=== PATIENT | male | born 1950 | race Caucasian/White ===

== ENCOUNTER 2021-01-01 07:50 | Emergency (ER) | payer MEDICARE ==
[~2021-01-01] VITALS: Ht 185.4 cm; Wt 72.8 kg
[2021-01-01] MEDS ORDERED: IOHEXOL 350 MG/ML 100 ML VIAL ONE (08:19)
[2021-01-01] MEDS ORDERED: SODIUM CHLORIDE 0.9% 100 ML ONE (08:19)
[2021-01-01 08:37] LABS: BASOPHILS % (AUTO) 0.8 % (0.0-2.0); EOSINOPHILS % (AUTO) 2.6 % (1.0-6.0); HEMATOCRIT 36.2 % (41-53); LYMPHOCYTES # (AUTO) 0.6 K/uL (1.0-4.8); LYMPHOCYTES % (AUTO) 12.8 % (22.0-44.0); MEAN CORPUSCULAR HEMOGLOBIN 32.5 pg (26.0-34.0); MEAN CORPUSCULAR HGB CONC 33.1 G/dL (31.0-37.0); MEAN CORPUSCULAR VOLUME 98 fL (80-100); MONOCYTES # (AUTO) 0.4 K/uL (0.1-1.0); MONOCYTES % (AUTO) 8.9 % (2.0-9.0); NEUTROPHILS # (AUTO) 3.7 K/uL (1.8-7.7); NEUTROPHILS % (AUTO) 74.9 % (40.0-70.0); PLATELET COUNT (AUTO) 111 K/uL (150-450); RED BLOOD CELL COUNT(AUTO) 3.69 MIL/uL (4.50-5.90)
[2021-01-01 08:51] LABS: CALCIUM, TOTAL 7.6 mg/dL (8.8-10.5); CREATININE 1.23 mg/dL (0.60-1.30); POTASSIUM 3.8 mmol/L (3.5-5.1)
[2021-01-01 08:54] LABS: BILIRUBIN,TOTAL 0.6 mg/dL (0.1-1.0); TOTAL PROTEIN, SERUM 6.1 g/dL (6.4-8.2)
[2021-01-01 09:01] LABS: INR 1.3 (0.9-1.1); PROTHROMBIN TIME 13.3 SEC (9.4-11.6)
[2021-01-01 09:05] LABS: B-TYPE NATRIURETIC PEPTIDE 114 pg/mL (0-100)
[2021-01-01 09:06] LABS: COVID AG,FIA SOURCE NASOPHARYNGEAL
[2021-01-01] MEDS ORDERED: AMPICILLIN SODIUM/SULBACTAM NA 3 GM in SODIUM CHLORIDE 0.9% 100 ML IV ONE (09:15)
[2021-01-01] MEDS ORDERED: ASPIRIN 325 MG TABLET PO ONE (10:30)
[2021-01-01] MEDS ORDERED: ASPIRIN 600 MG RECTAL SUPPOSITORY PR ONE (10:45)
[2021-01-01 11:55] LABS: APPEARANCE,URINE CLOUDY (CLEAR); BILIRUBIN,URINE NEGATIVE (NEGATIVE); GLUCOSE, URINE (UA) NEGATIVE (NEGATIVE); KETONES,URINE NEGATIVE (NEGATIVE); LEUKOCYTE ESTERASE ,URINE LARGE (NEGATIVE); NITRATE,URINE NEGATIVE (NEGATIVE); OCCULT BLOOD,URINE TRACE (NEGATIVE); PH,URINE 6.5 (5.0-8.0); PROTEIN,URINE NEGATIVE (NEGATIVE); UROBILINOGEN,URINE 0.2 mg/dL (<=1.0)
[2021-01-01 12:00] LABS: AMPHET/METH SCREEN,URINE NEGATIVE (NEGATIVE); BARBITURATE SCREEN, URINE NEGATIVE (NEGATIVE); BENZODIAZEPINES SCREEN,URINE NEGATIVE (NEGATIVE); CANNABINOID SCREEN,URINE NEGATIVE (NEGATIVE); COCAINE SCREEN,URINE NEGATIVE (NEGATIVE); METHADONE SCREEN, URINE NEGATIVE (NEGATIVE); OPIATE SCREEN,URINE NEGATIVE (NEGATIVE); PHENCYCLIDINE SCREEN,URINE NEGATIVE (NEGATIVE)
[2021-01-01 12:06] LABS: BACTERIA,URINE Few /HPF (None Seen); RBC,URINE 0-2 /HPF (0-2); WBC,URINE 51-100 /HPF (0-5)
[2021-01-01 12:07] LABS: SQUAMOUS EPITHELIAL CELL,UR Few /LPF (None Seen)
[2021-01-01] MEDS ORDERED: ENTA200T18 PO (12:16)
[2021-01-01] MEDS ORDERED: LEVO100 PO (12:16)
[2021-01-01] MEDS ORDERED: DABI150 PO (12:16)
[2021-01-01] MEDS ORDERED: FURO-152 PO (12:16)
[2021-01-01 14:10] VITALS: BP 121/70
== END 2021-01-01 15:27 | disposition short-term general hospital (02) ==
LOC: EMS 07:57 → EDBD 07:57 → EMS 15:27
DX: R47.81 Slurred speech (principal); R53.1 Weakness; Z20.822 Contact with and (suspected) exposure to COVID-19
CPT/HCPCS: 36415; 70450; 70496; 71045; 80053; 80307; 81001; 82962; 83880; 84484; 85025; 85610; 85730; 86850; 86900; 86901; 87077; 87086; 87426; 93005; 96365; 99285; A9575; G0480; J0295; J7050

== ENCOUNTER 2021-10-15 10:10 | Emergency (ER) | payer MEDICARE ==
[~2021-10-15] VITALS: Ht 188 cm; Wt 70.4 kg
[~2021-10-15 10:10] MED LIST: DABI150 PO; ENTA200T18 PO; FURO-152 PO; LEVO100 PO
[2021-10-15 11:07] LABS: BASOPHILS % (AUTO) 0.5 % (0.0-2.0); EOSINOPHILS % (AUTO) 1.2 % (1.0-6.0); HEMATOCRIT 37.9 % (41-53); HEMOGLOBIN 12.9 g/dL (13.5-17.5); LYMPHOCYTES # (AUTO) 0.8 K/uL (1.0-4.8); LYMPHOCYTES % (AUTO) 11.7 % (22.0-44.0); MEAN CORPUSCULAR HEMOGLOBIN 33.3 pg (26.0-34.0); MEAN CORPUSCULAR HGB CONC 33.9 G/dL (31.0-37.0); MEAN CORPUSCULAR VOLUME 98 fL (80-100); MONOCYTES # (AUTO) 0.9 K/uL (0.1-1.0); MONOCYTES % (AUTO) 12.4 % (2.0-9.0); NEUTROPHILS # (AUTO) 5.2 K/uL (1.8-7.7); NEUTROPHILS % (AUTO) 74.2 % (40.0-70.0); PLATELET COUNT (AUTO) 146 K/uL (150-450); RED BLOOD CELL COUNT(AUTO) 3.86 MIL/uL (4.50-5.90); RED CELL DISTRIBUTION WIDTH 13.4 % (11.5-14.5)
[2021-10-15 11:19] LABS: ANION GAP 8 mmol/L (8-16); CARBON DIOXIDE 29 mmol/L (22-29); CHLORIDE 103 mmol/L (98-107); POTASSIUM 4.3 mmol/L (3.5-5.1); SODIUM SERUM 140 mmol/L (136-145)
[2021-10-15 11:20] LABS: CREATININE 1.11 mg/dL (0.60-1.30); GLOMERULAR FILTR. RATE CALC > 60 mL/min (>60); GLUCOSE,RANDOM 86 mg/dL (70-110); UREA NITROGEN, BLOOD 20 mg/dL (7-18)
[2021-10-15 11:27] LABS: LACTIC ACID 0.5 mmol/L (0.4-2.0)
[2021-10-15 11:31] LABS: ALKALINE PHOSPHATASE 58 U/L (46-116); ASPARTATE AMINOTRANSFERASE 35 U/L (15-37); BILIRUBIN,TOTAL 0.8 mg/dL (0.1-1.0)
[2021-10-15 11:32] LABS: ALANINE AMINOTRANSFERASE 11 U/L (12-78); ALBUMIN 3.6 g/dL (3.4-5.0); LIPASE 88 U/L (73-393); TOTAL PROTEIN, SERUM 6.9 g/dL (6.4-8.2)
[2021-10-15 11:39] LABS: APPEARANCE,URINE TURBID (CLEAR); BILIRUBIN,URINE NEGATIVE (NEGATIVE); GLUCOSE, URINE (UA) NEGATIVE (NEGATIVE); KETONES,URINE NEGATIVE (NEGATIVE); LEUKOCYTE ESTERASE ,URINE MODERATE (NEGATIVE); NITRATE,URINE NEGATIVE (NEGATIVE); OCCULT BLOOD,URINE LARGE (NEGATIVE); PH,URINE 7.5 (5.0-8.0); PROTEIN,URINE 100-200,SEE CONFIRM mg/dL (NEGATIVE); SPECIFIC GRAVITIY, URINE 1.015 (1.003-1.030); UROBILINOGEN,URINE <=1.0 mg/dL (<=1.0)
[2021-10-15 12:00] LABS: SULFOSALICYLIC ACID,URINE 4+ (Negative)
[2021-10-15 12:01] LABS: RBC,URINE Full Field /HPF (0-2)
[2021-10-15 12:05] LABS: WBC,URINE 26-50 /HPF (0-5)
[2021-10-15 12:07] LABS: BACTERIA,URINE None Seen /HPF (None Seen)
[2021-10-15] MEDS ORDERED: CefTRIAXone 1 GM/DEXTROSE 50 ML IV ONE (12:30)
[2021-10-15] MEDS ORDERED: CIPROFLOXACIN HCL 250 MG TABLET PO ONE (12:30)
[2021-10-15] MEDS ORDERED: CEPH-558 PO (12:35)
[2021-10-15] MEDS ORDERED: CIPR-279 PO (12:35)
[2021-10-15 15:15] VITALS: BP 115/68
== END 2021-10-15 15:47 | disposition home or self-care (01) ==
LOC: EMS 10:18
DX: G20 Parkinson's disease (principal); N30.90 Cystitis, unspecified without hematuria; I48.91 Unspecified atrial fibrillation; I10 Essential (primary) hypertension; Z95.0 Presence of cardiac pacemaker; Z79.899 Other long term (current) drug therapy
CPT/HCPCS: 36415; 80053; 81001; 83605; 83690; 84484; 85025; 87086; 93005; 96365; 99285; J0696; 81002; 96374

== ENCOUNTER 2021-10-18 12:02 | Emergency (ER) | payer MEDICARE ==
[~2021-10-18] VITALS: Ht 190.5 cm; Wt 71.4 kg
[~2021-10-18 12:02] MED LIST changes: +CEPH-558 PO; +CIPR-279 PO
[2021-10-18 13:41] LABS: BASOPHILS % (AUTO) 0.5 % (0.0-2.0); EOSINOPHILS % (AUTO) 1.7 % (1.0-6.0); HEMATOCRIT 32.5 % (41-53); HEMOGLOBIN 11.2 g/dL (13.5-17.5); LYMPHOCYTES % (AUTO) 12.8 % (22.0-44.0); MEAN CORPUSCULAR HEMOGLOBIN 33.8 pg (26.0-34.0); MEAN CORPUSCULAR HGB CONC 34.5 G/dL (31.0-37.0); MEAN CORPUSCULAR VOLUME 98 fL (80-100); MONOCYTES % (AUTO) 12.7 % (2.0-9.0); NEUTROPHILS # (AUTO) 5.5 K/uL (1.8-7.7); NEUTROPHILS % (AUTO) 72.3 % (40.0-70.0); PLATELET COUNT (AUTO) 133 K/uL (150-450); RED BLOOD CELL COUNT(AUTO) 3.32 MIL/uL (4.50-5.90); RED CELL DISTRIBUTION WIDTH 13.5 % (11.5-14.5)
[2021-10-18 13:53] LABS: INR 1.1 (0.9-1.1)
[2021-10-18 18:53] VITALS: BP 132/91
== END 2021-10-18 19:40 | disposition home or self-care (01) ==
LOC: EMS 12:07
DX: R31.9 Hematuria, unspecified (principal); I48.91 Unspecified atrial fibrillation; I10 Essential (primary) hypertension; G20 Parkinson's disease; F02.80 Dementia in other diseases classified elsewhere, unspecified severity, without behavioral disturbance, psychotic disturbance, mood disturbance, and anxiety; Z95.2 Presence of prosthetic heart valve
CPT/HCPCS: 81002; 85025; 85610; 99283

== ENCOUNTER 2022-02-03 15:14 | Emergency (ER) | payer MEDICARE ==
[~2022-02-03] VITALS: Ht 188 cm; Wt 70.9 kg
[~2022-02-03 15:14] MED LIST changes: -DABI150 PO; +DABI150C2 PO
[2022-02-03 16:57] LABS: BASOPHILS % (AUTO) 0.6 % (0.0-2.0); EOSINOPHILS % (AUTO) 2.3 % (1.0-6.0); HEMATOCRIT 35.1 % (41-53); HEMOGLOBIN 11.8 g/dL (13.5-17.5); LYMPHOCYTES # (AUTO) 0.9 K/uL (1.0-4.8); LYMPHOCYTES % (AUTO) 15.9 % (22.0-44.0); MEAN CORPUSCULAR HGB CONC 33.7 G/dL (31.0-37.0); MEAN CORPUSCULAR VOLUME 92 fL (80-100); MONOCYTES # (AUTO) 0.8 K/uL (0.1-1.0); NEUTROPHILS # (AUTO) 3.6 K/uL (1.8-7.7); NEUTROPHILS % (AUTO) 66.2 % (40.0-70.0); PLATELET COUNT (AUTO) 139 K/uL (150-450); RED CELL DISTRIBUTION WIDTH 15.7 % (11.5-14.5)
[2022-02-03] MEDS ORDERED: SODIUM CHLORIDE 0.9% 1,000 ML IV ONE (17:00)
[2022-02-03 17:10] LABS: ANION GAP 8 mmol/L (8-16); CARBON DIOXIDE 26 mmol/L (22-29); CHLORIDE 99 mmol/L (98-107); CREATININE 1.17 mg/dL (0.60-1.30); GLUCOSE,RANDOM 86 mg/dL (70-110); POTASSIUM 4.1 mmol/L (3.5-5.1); SODIUM SERUM 133 mmol/L (136-145); UREA NITROGEN, BLOOD 17 mg/dL (7-18)
[2022-02-03 17:11] LABS: GLOMERULAR FILTR. RATE CALC > 60 mL/min (>60)
[2022-02-03 17:19] LABS: ALANINE AMINOTRANSFERASE 7 U/L (12-78); ALBUMIN 3.4 g/dL (3.4-5.0); ALKALINE PHOSPHATASE 45 U/L (46-116); ASPARTATE AMINOTRANSFERASE 20 U/L (15-37); BILIRUBIN,TOTAL 0.6 mg/dL (0.1-1.0); TOTAL PROTEIN, SERUM 6.3 g/dL (6.4-8.2)
[2022-02-03 17:48] LABS: APPEARANCE,URINE CLEAR (CLEAR); BILIRUBIN,URINE NEGATIVE (NEGATIVE); GLUCOSE, URINE (UA) NEGATIVE (NEGATIVE); KETONES,URINE NEGATIVE (NEGATIVE); LEUKOCYTE ESTERASE ,URINE TRACE (NEGATIVE); NITRATE,URINE NEGATIVE (NEGATIVE); OCCULT BLOOD,URINE NEGATIVE (NEGATIVE); PH,URINE 6.5 (5.0-8.0); PROTEIN,URINE NEGATIVE (NEGATIVE); UROBILINOGEN,URINE <=1.0 mg/dL (<=1.0)
[2022-02-03 18:10] LABS: BACTERIA,URINE Rare /HPF (None Seen); RBC,URINE 0-2 /HPF (0-2); SQUAMOUS EPITHELIAL CELL,UR Rare /LPF (None Seen)
[2022-02-03] MEDS ORDERED: CEPHALEXIN MONOHYDRATE 500 MG CAPSULE PO ONE (18:45)
[2022-02-03 19:02] VITALS: BP 118/70
[2022-02-03] MEDS ORDERED: POLY17PO PO (19:05)
[2022-02-03] MEDS ORDERED: CEPH-558 PO (19:05)
== END 2022-02-03 19:55 | disposition home or self-care (01) ==
LOC: EMS 15:16
DX: N39.0 Urinary tract infection, site not specified (principal); I48.91 Unspecified atrial fibrillation; I10 Essential (primary) hypertension; G20 Parkinson's disease; F02.80 Dementia in other diseases classified elsewhere, unspecified severity, without behavioral disturbance, psychotic disturbance, mood disturbance, and anxiety; Z98.890 Other specified postprocedural states
CPT/HCPCS: 74022; 80053; 81001; 85025; 87086; 99284

== ENCOUNTER 2023-05-29 10:55 | Inpatient (IN) | payer MEDICARE ==
[~2023-05-29] VITALS: Ht 188 cm; Wt 67.0 kg
[~2023-05-29 10:55] MED LIST changes: +POLY17PO PO
[2023-05-29] MEDS ORDERED: MORPHINE SULFATE 4 MG/ML SYRINGE IVP ONE (12:45)
[2023-05-29] MEDS ORDERED: ONDANSETRON HCL 4 MG/2 ML VIAL IVP ONE (12:45)
[2023-05-29 13:16] LABS: BASOPHILS % (AUTO) 0.4 % (0.0-2.0); HEMATOCRIT 36.4 % (41-53); HEMOGLOBIN 12.4 g/dL (13.5-17.5); LYMPHOCYTES # (AUTO) 0.7 K/uL (1.0-4.8); LYMPHOCYTES % (AUTO) 6.2 % (22.0-44.0); MEAN CORPUSCULAR HEMOGLOBIN 33.8 pg (26.0-34.0); MEAN CORPUSCULAR HGB CONC 34.2 G/dL (31.0-37.0); MEAN CORPUSCULAR VOLUME 99 fL (80-100); MONOCYTES # (AUTO) 1.3 K/uL (0.1-1.0); MONOCYTES % (AUTO) 10.7 % (2.0-9.0); NEUTROPHILS # (AUTO) 9.6 K/uL (1.8-7.7); NEUTROPHILS % (AUTO) 81.7 % (40.0-70.0); PLATELET COUNT (AUTO) 148 K/uL (150-450); RED BLOOD CELL COUNT(AUTO) 3.68 MIL/uL (4.50-5.90); RED CELL DISTRIBUTION WIDTH 13.4 % (11.5-14.5); WHITE BLOOD COUNT (AUTO) 11.8 K/uL (4.5-11.0)
[2023-05-29 13:35] LABS: B-TYPE NATRIURETIC PEPTIDE 157 pg/mL (0-100)
[2023-05-29 13:36] LABS: LACTIC ACID 1.2 mmol/L (0.4-2.0)
[2023-05-29 13:39] LABS: INR 1.1 (0.9-1.1); PROTHROMBIN TIME 11.9 SEC (9.4-11.6); TROPONIN I-HIGH SENSITIVITY 172 ng/L (<76)
[2023-05-29 13:42] LABS: COVID AG,FIA SOURCE NASAL SWAB
[2023-05-29 13:54] LABS: ANION GAP 5 mmol/L (8-16); CALCIUM, TOTAL 8.4 mg/dL (8.8-10.5); CARBON DIOXIDE 28 mmol/L (22-29); CHLORIDE 100 mmol/L (98-107); CREATININE 1.18 mg/dL (0.60-1.30); GLOMERULAR FILTR. RATE CALC > 60 mL/min (>60); GLUCOSE,RANDOM 99 mg/dL (70-110); POTASSIUM 3.9 mmol/L (3.5-5.1); SODIUM SERUM 133 mmol/L (136-145); UREA NITROGEN, BLOOD 22 mg/dL (7-18)
[2023-05-29 13:57] LABS: ALBUMIN 3.4 g/dL (3.4-5.0); LIPASE 27 U/L (16-77)
[2023-05-29 14:08] LABS: ALANINE AMINOTRANSFERASE 30 U/L (12-78); ALKALINE PHOSPHATASE 70 U/L (46-116); ASPARTATE AMINOTRANSFERASE 28 U/L (15-37); BILIRUBIN,TOTAL 0.7 mg/dL (0.1-1.0); TOTAL PROTEIN, SERUM 7.9 g/dL (6.4-8.2)
[2023-05-29 14:13] LABS: SARS-COV2 (COVID) ANTIGEN,FIA Negative (Negative)
[2023-05-29] MEDS ORDERED: MAGNESIUM HYDROXIDE SUSPENSION 30 ML UDCUP PO PRN (15:00)
[2023-05-29] MEDS ORDERED: ACETAMINOPHEN 325 MG TABLET PO PRN (15:00)
[2023-05-29] MEDS ORDERED: ONDANSETRON HCL 4 MG/2 ML VIAL IVP PRN (15:00)
[2023-05-29 15:35] LABS: APPEARANCE,URINE HAZY (CLEAR); BILIRUBIN,URINE NEGATIVE (NEGATIVE); COLOR,URINE YELLOW (YELLOW); GLUCOSE, URINE (UA) NEGATIVE (NEGATIVE); LEUKOCYTE ESTERASE ,URINE LARGE (NEGATIVE); OCCULT BLOOD,URINE TRACE (NEGATIVE); PROTEIN,URINE 30-70 mg/dL (NEGATIVE); SPECIFIC GRAVITIY, URINE 1.017 (1.003-1.030); UROBILINOGEN,URINE <=1.0 mg/dL (<=1.0)
[2023-05-29 15:46] LABS: NITRATE,URINE POSITIVE (NEGATIVE)
[2023-05-29 15:47] LABS: BACTERIA,URINE Many /HPF (None Seen); SQUAMOUS EPITHELIAL CELL,UR Rare /LPF (None Seen); WBC,URINE 51-100 /HPF (0-5)
[2023-05-29] MEDS: HEPARIN SODIUM,PORCINE 5,000 UNITS/ML VIAL SQ SCH ×2 (16:02→23:47)
[2023-05-29 16:36] LABS: CREATINE KINASE, TOTAL ONLY 130 U/L (39-308); THYROID STIMULATING HORMONE 4.69 uIU/mL (0.36-3.74)
[2023-05-29 17:42] VITALS: BP 135/85; PULSE 67; RESP 18; TEMP 98.3
[2023-05-29 19:32] LABS: TROPONIN I-HIGH SENSITIVITY 182 ng/L (<76)
[2023-05-29 19:49] VITALS: BP 122/74; PULSE 69; RESP 18; TEMP 98.3
[2023-05-29] MEDS: DOCUSATE SODIUM 100 MG CAPSULE PO SCH (20:49)
[2023-05-29] MEDS: METOPROLOL TARTRATE 25 MG TABLET PO SCH (20:49)
[2023-05-30] VITALS (7 sets, daily range): BP systolic 105–135; BP diastolic 62–84; PULSE 60–80; RESP 18–20; TEMP 97.8–98.9
[2023-05-30 07:14] LABS: TROPONIN I-HIGH SENSITIVITY 124 ng/L (<76)
[2023-05-30] MEDS: METOPROLOL TARTRATE 25 MG TABLET PO SCH ×2 (08:35→21:02)
[2023-05-30] MEDS: HEPARIN SODIUM,PORCINE 5,000 UNITS/ML VIAL SQ SCH ×3 (08:37→23:51)
[2023-05-30] MEDS: DOCUSATE SODIUM 100 MG CAPSULE PO SCH ×2 (08:37→21:02)
[2023-05-30] MEDS: FAMOTIDINE 20 MG TABLET PO SCH (08:37)
[2023-05-30] MEDS: OxyCODONE HCL/ACETAMINOPHEN 5-325 MG TABLET PO PRN (08:37)
[2023-05-30] MEDS ORDERED: SODIUM CHLORIDE 0.9% 1,000 ML ONE (11:52)
[2023-05-30] MEDS: CefTRIAXone 1 GM/DEXTROSE 50 ML IV SCH (11:58)
[2023-05-30] MEDS: MORPHINE SULFATE 2 MG/ML SYRINGE IVP PRN (12:00)
[2023-05-30] MEDS: ENTACAPONE 200 MG TABLET PO SCH (21:02)
[2023-05-31] MEDS: MORPHINE SULFATE 2 MG/ML SYRINGE IVP PRN (03:41)
[2023-05-31 03:51] VITALS: BP 110/75; PULSE 60; RESP 18; TEMP 97.8
[2023-05-31 06:43] LABS: BASOPHILS % (AUTO) 0.3 % (0.0-2.0); EOSINOPHILS % (AUTO) 2.3 % (1.0-6.0); HEMATOCRIT 32.5 % (41-53); HEMOGLOBIN 11.4 g/dL (13.5-17.5); LYMPHOCYTES % (AUTO) 9.9 % (22.0-44.0); MEAN CORPUSCULAR HEMOGLOBIN 34.1 pg (26.0-34.0); MEAN CORPUSCULAR HGB CONC 35.1 G/dL (31.0-37.0); MEAN CORPUSCULAR VOLUME 97 fL (80-100); MONOCYTES # (AUTO) 1.4 K/uL (0.1-1.0); MONOCYTES % (AUTO) 13.7 % (2.0-9.0); NEUTROPHILS # (AUTO) 7.6 K/uL (1.8-7.7); NEUTROPHILS % (AUTO) 73.8 % (40.0-70.0); PLATELET COUNT (AUTO) 146 K/uL (150-450); RED BLOOD CELL COUNT(AUTO) 3.34 MIL/uL (4.50-5.90); RED CELL DISTRIBUTION WIDTH 13.3 % (11.5-14.5); WHITE BLOOD COUNT (AUTO) 10.3 K/uL (4.5-11.0)
[2023-05-31 07:09] LABS: ANION GAP 4 mmol/L (8-16); CALCIUM, TOTAL 8.4 mg/dL (8.8-10.5); CARBON DIOXIDE 31 mmol/L (22-29); CHLORIDE 100 mmol/L (98-107); CREATININE 1.09 mg/dL (0.60-1.30); GLOMERULAR FILTR. RATE CALC > 60 mL/min (>60); GLUCOSE,RANDOM 100 mg/dL (70-110); SODIUM SERUM 135 mmol/L (136-145); UREA NITROGEN, BLOOD 25 mg/dL (7-18)
[2023-05-31] MEDS: HEPARIN SODIUM,PORCINE 5,000 UNITS/ML VIAL SQ SCH ×2 (08:00→16:00)
[2023-05-31] MEDS ORDERED: ETHYL ALCOHOL 62% ANTISEPTIC NASAL SANITIZER 0.6 ML AMPUL NASAL ONE (08:00)
[2023-05-31 08:08] VITALS: BP 122/77; PULSE 73; RESP 18; TEMP 97.5
[2023-05-31] MEDS: DOCUSATE SODIUM 100 MG CAPSULE PO SCH ×2 (09:00→20:11)
[2023-05-31] MEDS: MULTIVITAMINS WITH MINERALS, THERAPEUTIC TABLET PO SCH (09:00)
[2023-05-31] MEDS: METOPROLOL TARTRATE 25 MG TABLET PO SCH ×2 (09:00→20:10)
[2023-05-31] MEDS: FAMOTIDINE 20 MG TABLET PO SCH (09:00)
[2023-05-31] MEDS: ENTACAPONE 200 MG TABLET PO SCH ×2 (09:00→20:10)
[2023-05-31] MEDS ORDERED: RINGERS SOLUTION,LACTATED 1,000 ML IV ONE (09:30)
[2023-05-31] MEDS ORDERED: BUPIVACAINE LIPOSOME/PF 1.3%-13.3MG/ML SUSPENSION 20 ML VIAL INJ ONE (09:30)
[2023-05-31] MEDS ORDERED: BUPIVACAINE HCL/PF 0.5% 30 ML VIAL ONE (09:40)
[2023-05-31] MEDS ORDERED: LIDOCAINE 1%/EPI 1:200,000/PF 30 ML VIAL ONE (09:40)
[2023-05-31] MEDS ORDERED: BACITRACIN 28 GM OINTMENT TP ONE (09:52)
[2023-05-31] MEDS ORDERED: SODIUM CHLORIDE 0.9% 1,000 ML ONE (10:24)
[2023-05-31] MEDS ORDERED: NOREPINEPHRINE 8 MG/0.9 % NACL 250 ML IV PRN (10:30)
[2023-05-31] MEDS ORDERED: BUPIVACAINE HCL/PF 0.25% 30 ML VIAL ONE (10:35)
[2023-05-31] MEDS: CefTRIAXone 1 GM/DEXTROSE 50 ML IV SCH (11:00)
[2023-05-31] MEDS ORDERED: PROPOFOL 1% 20 ML VIAL IVP ONE (12:00)
[2023-05-31] MEDS ORDERED: SUGAMMADEX SODIUM 200 MG/2 ML VIAL IVP ONE (12:00)
[2023-05-31] MEDS ORDERED: ROCURONIUM BROMIDE 10 MG/ML 5 ML VIAL IVP ONE (12:00)
[2023-05-31] MEDS ORDERED: PHENYLEPHRINE HCL 10 MG/ML VIAL IVP ONE (12:00)
[2023-05-31] MEDS ORDERED: 0.9% SODIUM CHLORIDE 10 ML VIAL IVP ONE (12:00)
[2023-05-31] MEDS ORDERED: LIDOCAINE/PF 2% 5 ML SYRINGE IVP ONE (12:00)
[2023-05-31] MEDS ORDERED: CeFAZolin SODIUM 1 GM VIAL IVP ONE (12:00)
[2023-05-31] MEDS ORDERED: VANCOMYCIN HCL 1 GM/VIAL ONE (12:23)
[2023-05-31] MEDS ORDERED: MUPIROCIN CALCIUM 2% 22 GM OINTMENT ONE (13:28)
[2023-05-31] MEDS ORDERED: ACETAMINOPHEN 1000 MG/ISO-OSM 100 ML IV ONE (14:15)
[2023-05-31] MEDS ORDERED: CeFAZolin 2 GM/DEXTROSE 50 ML IV ONE (14:30)
[2023-05-31] MEDS ORDERED: CeFAZolin SODIUM 1 GM VIAL IV ONE (14:30)
[2023-05-31 14:56] LABS: ABG BASE EXCESS 1.8 mmol/L (-2.0-3.0); ABG CARBOXYHEMOGLOBIN 0.4 % (0.0-1.5); ABG HCO3 26.2 mmol/L (22.0-26.0); ABG METHEMOGLOBIN 0.3 % (0.0-1.5); ABG OXYGEN CONTENT 16.2 mL/dL (15.0-23.0); ABG OXYGEN SATURATION 95.7 % (95.0-98.0); ABG PCO2 36 mmHg (35-45); ABG PH 7.472 (7.35-7.450); ABG TOTAL HEMOGLOBIN 12.1 G/dL (12.0-18.0); PO2, ARTERIAL BG 78.6 mmHg (75.0-83.0); SITE, BLOOD GAS ARTERIAL LINE; SOURCE, BLOOD GAS ARTERIAL; TEMPERATURE, FAHRENHEIT, BG 98.6 FAHREN (96.0-98.6)
[2023-05-31 14:57] LABS: ABG A-A DIFF O2 28.5 mmHg (10-20.0); O2 DEVICE,BLOOD GAS ROOM AIR (ROOM AIR)
[2023-05-31] MEDS ORDERED: OXYGEN THERAPY IH SCH (20:00)
[2023-05-31] MEDS: OxyCODONE HCL/ACETAMINOPHEN 5-325 MG TABLET PO PRN (20:09)
[2023-05-31 20:10] VITALS: BP 97/54; PULSE 80; RESP 19; TEMP 98
[2023-06-01] MEDS: HEPARIN SODIUM,PORCINE 5,000 UNITS/ML VIAL SQ SCH ×3 (00:19→17:39)
[2023-06-01 00:36] VITALS: BP 94/61; PULSE 68; RESP 17; TEMP 97.4
[2023-06-01 04:11] VITALS: BP 101/68; PULSE 68; RESP 17; TEMP 98.2
[2023-06-01 07:50] VITALS: BP 107/65; PULSE 72; RESP 18; TEMP 98.2
[2023-06-01 08:06] LABS: HEPATITIS C AB (EIA) Non Reactive (Non Reactive)
[2023-06-01] MEDS: ENTACAPONE 200 MG TABLET PO SCH (08:43)
[2023-06-01] MEDS: MULTIVITAMINS WITH MINERALS, THERAPEUTIC TABLET PO SCH (08:43)
[2023-06-01] MEDS: DOCUSATE SODIUM 100 MG CAPSULE PO SCH (08:44)
[2023-06-01] MEDS: METOPROLOL TARTRATE 25 MG TABLET PO SCH (08:44)
[2023-06-01] MEDS: FAMOTIDINE 20 MG TABLET PO SCH (08:44)
[2023-06-01] MEDS: CefTRIAXone 1 GM/DEXTROSE 50 ML IV SCH (11:17)
[2023-06-01 12:15] VITALS: BP 105/68; PULSE 72; RESP 18; TEMP 98
[2023-06-01] MEDS ORDERED: CEFT1FRO3 IV (13:29)
[2023-06-01] MEDS ORDERED: ENTA200T18 PO (13:30)
[2023-06-01] MEDS ORDERED: DOCU-385 PO (13:30)
[2023-06-01] MEDS ORDERED: FAMO20 PO (13:30)
[2023-06-01] MEDS ORDERED: HEPA500018 SQ (13:31)
[2023-06-01] MEDS ORDERED: MULT-1239 PO (13:32)
[2023-06-01] MEDS ORDERED: METO25 PO (13:32)
[2023-06-01] MEDS ORDERED: ACET-2247 PO (13:34)
[2023-06-01] MEDS ORDERED: MAGN-169 PO (13:35)
[2023-06-01 15:32] VITALS: BP 104/58; PULSE 68; RESP 18; TEMP 98.1
== END 2023-06-01 19:50 | DRG 480 ==
LOC: EMS 10:56 → 5S 14:56
PROVIDERS: ADMIT Internal Medicine; ATTEND Internal Medicine
PROC: 0QS734Z Reposition Left Upper Femur with Internal Fixation Device, Percutaneous Approach (ICD-10-PCS; principal; 2023-05-31 11:55)
DX: S72.142A Displaced intertrochanteric fracture of left femur, initial encounter for closed fracture (principal); E43 Unspecified severe protein-calorie malnutrition; N39.0 Urinary tract infection, site not specified; Z68.1 Body mass index [BMI] 19.9 or less, adult; I48.0 Paroxysmal atrial fibrillation; F02.80 Dementia in other diseases classified elsewhere, unspecified severity, without behavioral disturbance, psychotic disturbance, mood disturbance, and anxiety; G20.A1 Parkinson's disease without dyskinesia, without mention of fluctuations; Z20.822 Contact with and (suspected) exposure to COVID-19; R79.89 Other specified abnormal findings of blood chemistry; I49.5 Sick sinus syndrome; E88.A Wasting disease (syndrome) due to underlying condition; I10 Essential (primary) hypertension; W01.0XXA Fall on same level from slipping, tripping and stumbling without subsequent striking against object, initial encounter; Y93.01 Activity, walking, marching and hiking; Y92.89 Other specified places as the place of occurrence of the external cause; Y99.8 Other external cause status; Z95.0 Presence of cardiac pacemaker; Z95.2 Presence of prosthetic heart valve; Z79.899 Other long term (current) drug therapy
CPT/HCPCS: 71045; 73503; 80048; 80053; 81001; 82550; 82805; 83605; 83690; 83880; 84443; 84484; 85025; 85610; 85730; 86803; 87040; 87081; 87086; 87186; 87340; 93005; 93306; 97163; 97166; 97530; 97535; 99291; C9290; J0131; J0690; J0696; J1644; J2270; J2405; J2704; J3370; J3490; J7030; J7120; Q9967; 36415-L1; 36415-TC; 73552-LT

== ENCOUNTER 2023-06-21 12:32 | Inpatient (IN) | payer MEDICARE ==
[~2023-06-21] VITALS: Ht 177.8 cm; Wt 59.0 kg
[~2023-06-21 12:32] MED LIST changes: +ACET-2247 PO; +CEFT1FRO3 IV; -CEPH-558 PO; -CIPR-279 PO; -DABI150C2 PO; +DOCU-385 PO; +FAMO20 PO; -FURO-152 PO; +HEPA500018 SQ; +MAGN-169 PO; +METO25 PO; +MULT-1239 PO; -POLY17PO PO
[2023-06-21 13:53] LABS: BASOPHILS % (AUTO) 0.4 % (0.0-2.0); EOSINOPHILS % (AUTO) 1.4 % (1.0-6.0); HEMOGLOBIN 12.4 g/dL (13.5-17.5); LYMPHOCYTES # (AUTO) 0.9 K/uL (1.0-4.8); LYMPHOCYTES % (AUTO) 9.7 % (22.0-44.0); MEAN CORPUSCULAR HEMOGLOBIN 33.4 pg (26.0-34.0); MEAN CORPUSCULAR HGB CONC 33.6 G/dL (31.0-37.0); MEAN CORPUSCULAR VOLUME 99 fL (80-100); MONOCYTES # (AUTO) 1.1 K/uL (0.1-1.0); MONOCYTES % (AUTO) 11.8 % (2.0-9.0); NEUTROPHILS # (AUTO) 7.2 K/uL (1.8-7.7); NEUTROPHILS % (AUTO) 76.7 % (40.0-70.0); PLATELET COUNT (AUTO) 228 K/uL (150-450); RED BLOOD CELL COUNT(AUTO) 3.72 MIL/uL (4.50-5.90); RED CELL DISTRIBUTION WIDTH 13.4 % (11.5-14.5); WHITE BLOOD COUNT (AUTO) 9.4 K/uL (4.5-11.0)
[2023-06-21 14:03] LABS: ANION GAP 6 mmol/L (8-16); CALCIUM, TOTAL 8.8 mg/dL (8.8-10.5); CARBON DIOXIDE 30 mmol/L (22-29); CHLORIDE 98 mmol/L (98-107); CREATININE 0.86 mg/dL (0.60-1.30); GLOMERULAR FILTR. RATE CALC > 60 mL/min (>60); GLUCOSE,RANDOM 85 mg/dL (70-110); POTASSIUM 4.3 mmol/L (3.5-5.1); SODIUM SERUM 133 mmol/L (136-145); UREA NITROGEN, BLOOD 23 mg/dL (7-18)
[2023-06-21 14:11] LABS: ALANINE AMINOTRANSFERASE 30 U/L (12-78); ALBUMIN 3.3 g/dL (3.4-5.0); ALKALINE PHOSPHATASE 128 U/L (46-116); ASPARTATE AMINOTRANSFERASE 30 U/L (15-37); BILIRUBIN,TOTAL 0.5 mg/dL (0.1-1.0); TOTAL PROTEIN, SERUM 7.8 g/dL (6.4-8.2)
[2023-06-21] MEDS ORDERED: METO-408 PO (16:52)
[2023-06-21] MEDS ORDERED: PANT40TA54 PO (16:52)
[2023-06-21] MEDS ORDERED: MAGN-169 PO (16:52)
[2023-06-21] MEDS ORDERED: ALEN70TA65 PO (16:52)
[2023-06-21] MEDS ORDERED: FLUD.1 PO (16:52)
[2023-06-21] MEDS ORDERED: MIDO10TA PO (16:52)
[2023-06-21] MEDS ORDERED: CARB1TAB42 PO (16:52)
[2023-06-21] MEDS ORDERED: MORPHINE SULFATE 4 MG/ML SYRINGE IVP ONE (20:30)
[2023-06-21] MEDS ORDERED: ONDANSETRON HCL 4 MG/2 ML VIAL IVP ONE (20:30)
[2023-06-21] MEDS ORDERED: SODIUM CHLORIDE 0.9% 1,000 ML IV ONE (20:30)
[2023-06-21] MEDS ORDERED: BISACODYL 10 MG RECTAL RECTAL SUPPOSITORY PR PRN (22:00)
[2023-06-21] MEDS ORDERED: ZOLPIDEM TARTRATE 5 MG TABLET PO PRN (22:00)
[2023-06-21] MEDS ORDERED: MAGNESIUM HYDROXIDE SUSPENSION 30 ML UDCUP PO PRN (22:00)
[2023-06-21] MEDS ORDERED: ACETAMINOPHEN 325 MG TABLET PO PRN (22:00)
[2023-06-21] MEDS ORDERED: HYDROCODONE/ACETAMINOPHEN 5-325 MG TABLET PO PRN (22:00)
[2023-06-21] MEDS ORDERED: ONDANSETRON HCL 4 MG/2 ML VIAL IVP PRN (22:00)
[2023-06-21] MEDS ORDERED: MORPHINE SULFATE 2 MG/ML SYRINGE IVP PRN (22:00)
[2023-06-21] MEDS: HEPARIN SODIUM,PORCINE 5,000 UNITS/ML VIAL SQ SCH (23:52)
[2023-06-22 01:52] LABS: COVID AG,FIA SOURCE NASAL SWAB
[2023-06-22 02:10] LABS: SARS-COV2 (COVID) ANTIGEN,FIA Negative (Negative)
[2023-06-22] MEDS: LEVOTHYROXINE SODIUM 100 MCG TABLET PO SCH (05:56)
[2023-06-22 05:57] VITALS: BP 124/80; PULSE 73; RESP 19; TEMP 98.4
[2023-06-22 07:36] LABS: BASOPHILS % (AUTO) 0.3 % (0.0-2.0); EOSINOPHILS % (AUTO) 0.6 % (1.0-6.0); HEMATOCRIT 35.2 % (41-53); HEMOGLOBIN 12.2 g/dL (13.5-17.5); LYMPHOCYTES # (AUTO) 0.7 K/uL (1.0-4.8); LYMPHOCYTES % (AUTO) 7.6 % (22.0-44.0); MEAN CORPUSCULAR HGB CONC 34.5 G/dL (31.0-37.0); MEAN CORPUSCULAR VOLUME 98 fL (80-100); MONOCYTES # (AUTO) 0.8 K/uL (0.1-1.0); MONOCYTES % (AUTO) 9.1 % (2.0-9.0); NEUTROPHILS # (AUTO) 7.7 K/uL (1.8-7.7); NEUTROPHILS % (AUTO) 82.4 % (40.0-70.0); PLATELET COUNT (AUTO) 213 K/uL (150-450); RED BLOOD CELL COUNT(AUTO) 3.58 MIL/uL (4.50-5.90); WHITE BLOOD COUNT (AUTO) 9.3 K/uL (4.5-11.0)
[2023-06-22 07:52] LABS: ANION GAP 9 mmol/L (8-16); CALCIUM, TOTAL 8.5 mg/dL (8.8-10.5); CARBON DIOXIDE 27 mmol/L (22-29); CHLORIDE 103 mmol/L (98-107); CREATININE 0.85 mg/dL (0.60-1.30); GLOMERULAR FILTR. RATE CALC > 60 mL/min (>60); GLUCOSE,RANDOM 96 mg/dL (70-110); POTASSIUM 4.2 mmol/L (3.5-5.1); SODIUM SERUM 139 mmol/L (136-145); UREA NITROGEN, BLOOD 22 mg/dL (7-18)
[2023-06-22] MEDS: HEPARIN SODIUM,PORCINE 5,000 UNITS/ML VIAL SQ SCH ×2 (08:00→16:00)
[2023-06-22 08:32] VITALS: BP 112/74; PULSE 69; RESP 18; TEMP 98
[2023-06-22] MEDS: CARBIDOPA/LEVODOPA 50-200 MG ER TABLET PO SCH ×4 (09:00→21:00)
[2023-06-22] MEDS: PANTOPRAZOLE SODIUM 40 MG DR TABLET PO SCH (09:00)
[2023-06-22] MEDS: FLUDROCORTISONE ACETATE 0.1 MG TABLET PO SCH (09:00)
[2023-06-22] MEDS: DOCUSATE SODIUM 100 MG CAPSULE PO SCH ×2 (09:00→21:00)
[2023-06-22] MEDS: METOPROLOL SUCCINATE 25 MG ER TABLET PO SCH (09:00)
[2023-06-22 10:54] VITALS: BP 118/76; PULSE 72; RESP 19; TEMP 98.2
[2023-06-22 16:09] VITALS: BP 103/75; PULSE 82; RESP 19; TEMP 98.4
[2023-06-22 21:20] VITALS: BP 167/62; PULSE 83; RESP 20; TEMP 98.9
[2023-06-22 21:35] VITALS: BP 167/62; PULSE 83; RESP 20; TEMP 98.9
[2023-06-23] VITALS (7 sets, daily range): BP systolic 100–129; BP diastolic 51–88; PULSE 63–81; RESP 17–20; TEMP 97.8–98.8
[2023-06-23] MEDS: HEPARIN SODIUM,PORCINE 5,000 UNITS/ML VIAL SQ SCH ×3 (00:36→23:22)
[2023-06-23] MEDS: LEVOTHYROXINE SODIUM 100 MCG TABLET PO SCH (06:30)
[2023-06-23] MEDS: PANTOPRAZOLE SODIUM 40 MG DR TABLET PO SCH (09:00)
[2023-06-23] MEDS: CARBIDOPA/LEVODOPA 50-200 MG ER TABLET PO SCH ×4 (09:00→20:14)
[2023-06-23] MEDS: METOPROLOL SUCCINATE 25 MG ER TABLET PO SCH (09:00)
[2023-06-23] MEDS: FLUDROCORTISONE ACETATE 0.1 MG TABLET PO SCH (09:00)
[2023-06-23] MEDS: DOCUSATE SODIUM 100 MG CAPSULE PO SCH ×2 (09:00→20:13)
[2023-06-23] MEDS ORDERED: DEXTROSE 5%-0.45% SODIUM CHL 1,000 ML IV ONE (11:15)
[2023-06-23 12:23] LABS: APPEARANCE,URINE HAZY (CLEAR); BILIRUBIN,URINE NEGATIVE (NEGATIVE); COLOR,URINE YELLOW (YELLOW); GLUCOSE, URINE (UA) NEGATIVE (NEGATIVE); LEUKOCYTE ESTERASE ,URINE LARGE (NEGATIVE); NITRATE,URINE POSITIVE (NEGATIVE); OCCULT BLOOD,URINE NEGATIVE (NEGATIVE); PH,URINE 6.5 (5.0-8.0); PROTEIN,URINE 30-70 mg/dL (NEGATIVE); SPECIFIC GRAVITIY, URINE 1.025 (1.003-1.030); UROBILINOGEN,URINE <=1.0 mg/dL (<=1.0)
[2023-06-23 12:35] LABS: BACTERIA,URINE Many /HPF (None Seen); RBC,URINE None Seen /HPF (0-2); SQUAMOUS EPITHELIAL CELL,UR Few /LPF (None Seen)
[2023-06-23] MEDS: SCOPOLAMINE HYDROBROMIDE 1 MG/72 HOUR PATCH TD SCH (14:35)
[2023-06-24 04:45] VITALS: BP 106/64; PULSE 71; RESP 17; TEMP 96.9
[2023-06-24] MEDS: LEVOTHYROXINE SODIUM 100 MCG TABLET PO SCH (04:56)
[2023-06-24 06:31] LABS: BASOPHILS % (AUTO) 0.3 % (0.0-2.0); EOSINOPHILS % (AUTO) 1.2 % (1.0-6.0); HEMATOCRIT 35.6 % (41-53); LYMPHOCYTES # (AUTO) 0.7 K/uL (1.0-4.8); LYMPHOCYTES % (AUTO) 6.4 % (22.0-44.0); MEAN CORPUSCULAR HEMOGLOBIN 33.4 pg (26.0-34.0); MEAN CORPUSCULAR HGB CONC 33.6 G/dL (31.0-37.0); MEAN CORPUSCULAR VOLUME 99 fL (80-100); MONOCYTES # (AUTO) 1.4 K/uL (0.1-1.0); MONOCYTES % (AUTO) 12.8 % (2.0-9.0); NEUTROPHILS # (AUTO) 8.8 K/uL (1.8-7.7); NEUTROPHILS % (AUTO) 79.3 % (40.0-70.0); PLATELET COUNT (AUTO) 185 K/uL (150-450); RED BLOOD CELL COUNT(AUTO) 3.59 MIL/uL (4.50-5.90); RED CELL DISTRIBUTION WIDTH 13.6 % (11.5-14.5); WHITE BLOOD COUNT (AUTO) 11.2 K/uL (4.5-11.0)
[2023-06-24 07:15] LABS: ANION GAP 8 mmol/L (8-16); CALCIUM, TOTAL 8.8 mg/dL (8.8-10.5); CARBON DIOXIDE 27 mmol/L (22-29); CHLORIDE 102 mmol/L (98-107); CREATININE 0.75 mg/dL (0.60-1.30); GLOMERULAR FILTR. RATE CALC > 60 mL/min (>60); GLUCOSE,RANDOM 90 mg/dL (70-110); POTASSIUM 3.9 mmol/L (3.5-5.1); SODIUM SERUM 137 mmol/L (136-145); UREA NITROGEN, BLOOD 25 mg/dL (7-18)
[2023-06-24 07:18] VITALS: BP 104/65; PULSE 69; RESP 18; TEMP 97
[2023-06-24] MEDS: PANTOPRAZOLE SODIUM 40 MG DR TABLET PO SCH (09:00)
[2023-06-24] MEDS: DOCUSATE SODIUM 100 MG CAPSULE PO SCH ×2 (09:00→21:00)
[2023-06-24] MEDS: CARBIDOPA/LEVODOPA 50-200 MG ER TABLET PO SCH ×4 (09:00→21:00)
[2023-06-24] MEDS: FLUDROCORTISONE ACETATE 0.1 MG TABLET PO SCH (09:00)
[2023-06-24] MEDS: METOPROLOL SUCCINATE 25 MG ER TABLET PO SCH (09:00)
[2023-06-24] MEDS: HEPARIN SODIUM,PORCINE 5,000 UNITS/ML VIAL SQ SCH ×2 (09:43→16:16)
[2023-06-24 10:37] VITALS: BP 107/71; PULSE 66; RESP 20; TEMP 98
[2023-06-24] MEDS ORDERED: SODIUM CHLORIDE 0.9% 500 ML IV ONE (14:33)
[2023-06-24] MEDS: CefTRIAXone 1 GM/DEXTROSE 50 ML IV SCH (14:39)
[2023-06-24 16:15] VITALS: BP 106/74; PULSE 70; RESP 18; TEMP 98.2
[2023-06-24 19:45] VITALS: BP 124/78; PULSE 79; RESP 18; TEMP 98.5
[2023-06-24] MEDS: DEXTROSE 5%-0.45% SODIUM CHL 1,000 ML IV SCH (21:25)
[2023-06-24] MEDS ORDERED: CeFAZolin 1 GM/DEXTROSE 50 ML IV ONE (23:55)
[2023-06-25] MEDS: HEPARIN SODIUM,PORCINE 5,000 UNITS/ML VIAL SQ SCH ×3 (00:40→16:00)
[2023-06-25 04:39] VITALS: BP 126/81; PULSE 82; RESP 20; TEMP 97.5
[2023-06-25 06:50] LABS: BASOPHILS % (AUTO) 0.2 % (0.0-2.0); EOSINOPHILS % (AUTO) 0.3 % (1.0-6.0); HEMATOCRIT 35.4 % (41-53); LYMPHOCYTES # (AUTO) 0.6 K/uL (1.0-4.8); LYMPHOCYTES % (AUTO) 4.6 % (22.0-44.0); MEAN CORPUSCULAR HEMOGLOBIN 33.5 pg (26.0-34.0); MEAN CORPUSCULAR HGB CONC 33.8 G/dL (31.0-37.0); MEAN CORPUSCULAR VOLUME 99 fL (80-100); MONOCYTES # (AUTO) 1.5 K/uL (0.1-1.0); MONOCYTES % (AUTO) 11.1 % (2.0-9.0); NEUTROPHILS % (AUTO) 83.8 % (40.0-70.0); PLATELET COUNT (AUTO) 191 K/uL (150-450); RED BLOOD CELL COUNT(AUTO) 3.58 MIL/uL (4.50-5.90); RED CELL DISTRIBUTION WIDTH 13.7 % (11.5-14.5); WHITE BLOOD COUNT (AUTO) 13.2 K/uL (4.5-11.0)
[2023-06-25 07:12] LABS: ANION GAP 10 mmol/L (8-16); CARBON DIOXIDE 26 mmol/L (22-29); CHLORIDE 101 mmol/L (98-107); CREATININE 0.71 mg/dL (0.60-1.30); GLOMERULAR FILTR. RATE CALC > 60 mL/min (>60); GLUCOSE,RANDOM 121 mg/dL (70-110); POTASSIUM 3.7 mmol/L (3.5-5.1); SODIUM SERUM 137 mmol/L (136-145); UREA NITROGEN, BLOOD 25 mg/dL (7-18)
[2023-06-25] MEDS: CARBIDOPA/LEVODOPA 50-200 MG ER TABLET PO SCH ×4 (09:00→20:46)
[2023-06-25] MEDS: FLUDROCORTISONE ACETATE 0.1 MG TABLET PO SCH (09:00)
[2023-06-25] MEDS: PANTOPRAZOLE SODIUM 40 MG DR TABLET PO SCH (09:00)
[2023-06-25] MEDS: METOPROLOL SUCCINATE 25 MG ER TABLET PO SCH (09:00)
[2023-06-25] MEDS: DOCUSATE SODIUM 100 MG CAPSULE PO SCH ×2 (09:00→20:46)
[2023-06-25 09:04] VITALS: BP 98/63; PULSE 80; RESP 19; TEMP 97.9
[2023-06-25] MEDS ORDERED: DEXTROSE 5%-0.45% SODIUM CHL 1,000 ML IV SCH (09:45)
[2023-06-25] MEDS: CefTRIAXone 1 GM/DEXTROSE 50 ML IV SCH (11:38)
[2023-06-25] MEDS: DEXTROSE 5%-0.45% SODIUM CHL 1,000 ML IV SCH (11:43)
[2023-06-25] MEDS ORDERED: PROPOFOL 1% 20 ML VIAL IVP ONE (12:00)
[2023-06-25] MEDS ORDERED: LIDOCAINE/PF 2% 5 ML VIAL IM ONE (12:00)
[2023-06-25 18:19] VITALS: BP 104/75; PULSE 76; RESP 17; TEMP 97.9
[2023-06-25 20:53] VITALS: BP 101/65; PULSE 65; RESP 16; TEMP 97.8
[2023-06-26] MEDS: HEPARIN SODIUM,PORCINE 5,000 UNITS/ML VIAL SQ SCH ×3 (00:55→15:57)
[2023-06-26] MEDS: DEXTROSE 5%-0.45% SODIUM CHL 1,000 ML IV SCH ×2 (01:51→20:00)
[2023-06-26 04:10] VITALS: BP 107/67; PULSE 72; RESP 18; TEMP 97.5
[2023-06-26 06:36] LABS: HEMATOCRIT 33.6 % (41-53); HEMOGLOBIN 11.5 g/dL (13.5-17.5); MEAN CORPUSCULAR HEMOGLOBIN 33.8 pg (26.0-34.0); MEAN CORPUSCULAR HGB CONC 34.2 G/dL (31.0-37.0); MEAN CORPUSCULAR VOLUME 99 fL (80-100); RED BLOOD CELL COUNT(AUTO) 3.39 MIL/uL (4.50-5.90)
[2023-06-26 06:37] LABS: BASOPHILS % (AUTO) 0.3 % (0.0-2.0); EOSINOPHILS % (AUTO) 0.6 % (1.0-6.0); LYMPHOCYTES # (AUTO) 0.6 K/uL (1.0-4.8); LYMPHOCYTES % (AUTO) 6.8 % (22.0-44.0); MONOCYTES # (AUTO) 1.1 K/uL (0.1-1.0); NEUTROPHILS # (AUTO) 7.2 K/uL (1.8-7.7); NEUTROPHILS % (AUTO) 80.3 % (40.0-70.0); PLATELET COUNT (AUTO) 180 K/uL (150-450); RED CELL DISTRIBUTION WIDTH 13.3 % (11.5-14.5)
[2023-06-26 06:47] LABS: ANION GAP 10 mmol/L (8-16); CALCIUM, TOTAL 8.4 mg/dL (8.8-10.5); CARBON DIOXIDE 24 mmol/L (22-29); CHLORIDE 104 mmol/L (98-107); CREATININE 0.61 mg/dL (0.60-1.30); GLOMERULAR FILTR. RATE CALC > 60 mL/min (>60); GLUCOSE,RANDOM 108 mg/dL (70-110); POTASSIUM 3.4 mmol/L (3.5-5.1); SODIUM SERUM 138 mmol/L (136-145); UREA NITROGEN, BLOOD 20 mg/dL (7-18)
[2023-06-26] MEDS: SCOPOLAMINE HYDROBROMIDE 1 MG/72 HOUR PATCH TD SCH (08:47)
[2023-06-26] MEDS: FLUDROCORTISONE ACETATE 0.1 MG TABLET PO SCH (08:47)
[2023-06-26] MEDS: PANTOPRAZOLE SODIUM 40 MG DR TABLET PO SCH (08:48)
[2023-06-26] MEDS: DOCUSATE SODIUM 100 MG CAPSULE PO SCH ×2 (08:48→20:48)
[2023-06-26] MEDS: METOPROLOL SUCCINATE 25 MG ER TABLET PO SCH (09:00)
[2023-06-26] MEDS: CARBIDOPA/LEVODOPA 50-200 MG ER TABLET PO SCH ×4 (09:11→20:48)
[2023-06-26 09:34] VITALS: BP 106/64; PULSE 73; RESP 18; TEMP 99.1
[2023-06-26] MEDS: CefTRIAXone 1 GM/DEXTROSE 50 ML IV SCH (14:14)
[2023-06-26] MEDS ORDERED: POTASSIUM CHLORIDE 10% 40 MEQ/30 ML LIQUID UDCUP PEG ONE (15:30)
[2023-06-26 16:18] VITALS: BP 109/71; PULSE 69; RESP 18; TEMP 98.5
[2023-06-26 21:04] VITALS: BP 105/65; PULSE 89; RESP 20; TEMP 97.8
[2023-06-27] MEDS: HEPARIN SODIUM,PORCINE 5,000 UNITS/ML VIAL SQ SCH ×4 (00:09→23:08)
[2023-06-27 07:57] VITALS: BP 108/72; PULSE 92; RESP 20; TEMP 97.9
[2023-06-27] MEDS: FLUDROCORTISONE ACETATE 0.1 MG TABLET PO SCH (08:08)
[2023-06-27] MEDS: DOCUSATE SODIUM 100 MG CAPSULE PO SCH ×2 (08:08→20:42)
[2023-06-27] MEDS: LEVOTHYROXINE SODIUM 100 MCG TABLET PO SCH (08:08)
[2023-06-27] MEDS: CARBIDOPA/LEVODOPA 50-200 MG ER TABLET PO SCH ×4 (08:10→20:42)
[2023-06-27] MEDS: METOPROLOL SUCCINATE 25 MG ER TABLET PO SCH (08:10)
[2023-06-27] MEDS: PANTOPRAZOLE SODIUM 40 MG DR TABLET PO SCH (08:10)
[2023-06-27] MEDS: CefTRIAXone 1 GM/DEXTROSE 50 ML IV SCH (12:24)
[2023-06-27] MEDS: DEXTROSE 5%-0.45% SODIUM CHL 1,000 ML IV SCH ×2 (15:05→23:05)
[2023-06-27 20:13] VITALS: BP 110/66; PULSE 76; RESP 18; TEMP 98.7
[2023-06-28 03:25] VITALS: BP 120/71; PULSE 71; RESP 18; TEMP 98.8
[2023-06-28 08:02] VITALS: BP 112/68; PULSE 77; RESP 19; TEMP 98.2
[2023-06-28] MEDS: DOCUSATE SODIUM 100 MG CAPSULE PO SCH ×2 (08:41→19:57)
[2023-06-28] MEDS: PANTOPRAZOLE SODIUM 40 MG DR TABLET PO SCH (08:41)
[2023-06-28] MEDS: METOPROLOL SUCCINATE 25 MG ER TABLET PO SCH (08:41)
[2023-06-28] MEDS: HEPARIN SODIUM,PORCINE 5,000 UNITS/ML VIAL SQ SCH ×3 (08:41→23:49)
[2023-06-28] MEDS: CARBIDOPA/LEVODOPA 50-200 MG ER TABLET PO SCH ×4 (08:41→20:24)
[2023-06-28] MEDS: FLUDROCORTISONE ACETATE 0.1 MG TABLET PO SCH (08:41)
[2023-06-28] MEDS: CefTRIAXone 1 GM/DEXTROSE 50 ML IV SCH (12:19)
[2023-06-28 16:43] VITALS: BP 106/72; PULSE 84; RESP 19; TEMP 98
[2023-06-28] MEDS: DEXTROSE 5%-0.45% SODIUM CHL 1,000 ML IV SCH (18:59)
[2023-06-28 20:04] VITALS: BP 117/71; PULSE 69; RESP 18; TEMP 97.8
[2023-06-29 05:07] VITALS: BP 104/61; PULSE 68; RESP 20; TEMP 97.7
[2023-06-29] MEDS: LEVOTHYROXINE SODIUM 100 MCG TABLET PO SCH (06:58)
[2023-06-29 08:10] VITALS: BP 108/64; PULSE 74; RESP 20; TEMP 97.8
[2023-06-29] MEDS: SCOPOLAMINE HYDROBROMIDE 1 MG/72 HOUR PATCH TD SCH (08:24)
[2023-06-29] MEDS: CARBIDOPA/LEVODOPA 50-200 MG ER TABLET PO SCH ×3 (08:25→16:10)
[2023-06-29] MEDS: METOPROLOL SUCCINATE 25 MG ER TABLET PO SCH (08:25)
[2023-06-29] MEDS: HEPARIN SODIUM,PORCINE 5,000 UNITS/ML VIAL SQ SCH ×2 (08:25→16:10)
[2023-06-29] MEDS: FLUDROCORTISONE ACETATE 0.1 MG TABLET PO SCH (08:25)
[2023-06-29] MEDS: PANTOPRAZOLE SODIUM 40 MG DR TABLET PO SCH (08:25)
[2023-06-29] MEDS: DOCUSATE SODIUM 100 MG CAPSULE PO SCH (08:25)
[2023-06-29] MEDS: DEXTROSE 5%-0.45% SODIUM CHL 1,000 ML IV SCH ×2 (08:30→16:10)
[2023-06-29] MEDS: CefTRIAXone 1 GM/DEXTROSE 50 ML IV SCH (12:00)
[2023-06-29 16:00] VITALS: BP 115/79; PULSE 62; RESP 20; TEMP 98.3
== END 2023-06-29 19:40 | DRG 542 ==
LOC: EMS 12:33 → 5S 06-22 03:57 → 6S 06-24 11:55
PROVIDERS: ADMIT Internal Medicine; ATTEND Internal Medicine
PROC: 0DH63UZ Insertion of Feeding Device into Stomach, Percutaneous Approach (ICD-10-PCS; principal; 2023-06-25 15:00)
DX: M48.56XA Collapsed vertebra, not elsewhere classified, lumbar region, initial encounter for fracture (principal); E43 Unspecified severe protein-calorie malnutrition; E87.1 Hypo-osmolality and hyponatremia; N39.0 Urinary tract infection, site not specified; R64 Cachexia; Z68.1 Body mass index [BMI] 19.9 or less, adult; I10 Essential (primary) hypertension; G20.A1 Parkinson's disease without dyskinesia, without mention of fluctuations; M81.0 Age-related osteoporosis without current pathological fracture; E03.9 Hypothyroidism, unspecified; R62.7 Adult failure to thrive; R29.6 Repeated falls; Z20.822 Contact with and (suspected) exposure to COVID-19; I48.91 Unspecified atrial fibrillation; R13.10 Dysphagia, unspecified; F02.80 Dementia in other diseases classified elsewhere, unspecified severity, without behavioral disturbance, psychotic disturbance, mood disturbance, and anxiety; Z95.2 Presence of prosthetic heart valve
CPT/HCPCS: 70450; 71045; 72100; 72125; 72131; 74018; 80048; 80053; 81001; 84132; 85025; 87081; 87086; 87186; 92526; 92610; 97110; 97116; 97162; 97530; 99285; J0696; J1644; J2270; J2405; J2704; J3490; J7030; J7040; 36415-L1; 36415-TC; Z7610

== ENCOUNTER 2023-07-14 14:34 | Inpatient (IN) | payer MEDICARE ==
[~2023-07-14] VITALS: Ht 182.9 cm; Wt 58.0 kg
[~2023-07-14 14:34] MED LIST changes: +ALEN70TA65 PO; +CARB1TAB42 PO; -CEFT1FRO3 IV; -ENTA200T18 PO; -FAMO20 PO; +FLUD.1 PO; +METO-408 PO; -METO25 PO; +MIDO10TA PO; +PANT40TA54 PO
[2023-07-14 15:19] LABS: BASOPHILS % (AUTO) 0.3 % (0.0-2.0); EOSINOPHILS % (AUTO) 0.6 % (1.0-6.0); HEMATOCRIT 37.8 % (41-53); HEMOGLOBIN 12.8 g/dL (13.5-17.5); LYMPHOCYTES # (AUTO) 0.8 K/uL (1.0-4.8); MEAN CORPUSCULAR HEMOGLOBIN 33.6 pg (26.0-34.0); MEAN CORPUSCULAR HGB CONC 33.9 G/dL (31.0-37.0); MEAN CORPUSCULAR VOLUME 99 fL (80-100); MONOCYTES # (AUTO) 1.2 K/uL (0.1-1.0); MONOCYTES % (AUTO) 10.9 % (2.0-9.0); NEUTROPHILS # (AUTO) 8.8 K/uL (1.8-7.7); NEUTROPHILS % (AUTO) 81.2 % (40.0-70.0); PLATELET COUNT (AUTO) 226 K/uL (150-450); RED BLOOD CELL COUNT(AUTO) 3.81 MIL/uL (4.50-5.90); RED CELL DISTRIBUTION WIDTH 13.6 % (11.5-14.5); WHITE BLOOD COUNT (AUTO) 10.8 K/uL (4.5-11.0)
[2023-07-14 15:26] LABS: ANION GAP 5 mmol/L (8-16); CALCIUM, TOTAL 9.2 mg/dL (8.8-10.5); CARBON DIOXIDE 32 mmol/L (22-29); CHLORIDE 96 mmol/L (98-107); GLOMERULAR FILTR. RATE CALC > 60 mL/min (>60); GLUCOSE,RANDOM 86 mg/dL (70-110); POTASSIUM 4.3 mmol/L (3.5-5.1); SODIUM SERUM 133 mmol/L (136-145); UREA NITROGEN, BLOOD 20 mg/dL (7-18)
[2023-07-14 15:33] LABS: ALANINE AMINOTRANSFERASE 8 U/L (12-78); ALBUMIN 3.5 g/dL (3.4-5.0); ALKALINE PHOSPHATASE 109 U/L (46-116); ASPARTATE AMINOTRANSFERASE 30 U/L (15-37); BILIRUBIN,TOTAL 0.6 mg/dL (0.1-1.0); CREATINE KINASE, TOTAL ONLY 62 U/L (39-308); TOTAL PROTEIN, SERUM 7.7 g/dL (6.4-8.2)
[2023-07-14 15:34] LABS: TROPONIN I-HIGH SENSITIVITY 16 ng/L (<76)
[2023-07-14 15:34] LABS: COVID AG,FIA SOURCE NASAL SWAB
[2023-07-14 15:37] LABS: B-TYPE NATRIURETIC PEPTIDE 70 pg/mL (0-100)
[2023-07-14 15:52] LABS: SARS-COV2 (COVID) ANTIGEN,FIA Negative (Negative)
[2023-07-14 16:01] LABS: RESPIRATORY SYNCYTIAL VIRS,FIA NEGATIVE (Negative)
[2023-07-14 16:16] LABS: INFLUENZA TYPE A NEGATIVE FOR TYPE A (NEGATIVE); INFLUENZA TYPE B NEGATIVE FOR TYPE B (NEGATIVE)
[2023-07-14] MEDS ORDERED: IPRATROPIUM BROMIDE 0.5 MG/2.5 ML NEB SOLUTION NEB ONE (17:00)
[2023-07-14] MEDS ORDERED: ALBUTEROL SULFATE 2.5 MG/0.5 ML NEB SOLUTION NEB ONE (17:00)
[2023-07-14 17:06] VITALS: PULSE 67; RESP 17; O2SAT 99
[2023-07-14 17:21] VITALS: PULSE 69; RESP 18; O2SAT 98
[2023-07-14] MEDS ORDERED: AZITHROMYCIN 500 MG/NS 250 ML IV ONE (17:30)
[2023-07-14] MEDS ORDERED: CefTRIAXone 1 GM/DEXTROSE 50 ML IV ONE (17:30)
[2023-07-14] MEDS ORDERED: SODIUM CHLORIDE 0.9% 1,000 ML IV ONE ×2 (17:30→18:30)
[2023-07-14] MEDS ORDERED: MAGNESIUM HYDROXIDE SUSPENSION 30 ML UDCUP PO PRN (18:30)
[2023-07-14] MEDS ORDERED: ONDANSETRON HCL 4 MG/2 ML VIAL IVP PRN (18:30)
[2023-07-14] MEDS ORDERED: BISACODYL 10 MG RECTAL RECTAL SUPPOSITORY PR PRN (18:30)
[2023-07-14] MEDS ORDERED: *CLINICAL-LEVOFLOXACIN IVPB DOSING CLINICAL ONE (18:30)
[2023-07-14] MEDS ORDERED: LEVOFLOXACIN 750 MG/D5% WATER 150 ML IV SCH ×2 (19:00→20:00)
[2023-07-14] MEDS: DOCUSATE SODIUM 100 MG CAPSULE PO SCH (21:00)
[2023-07-14] MEDS: CARBIDOPA/LEVODOPA 50-200 MG ER TABLET PO SCH (21:21)
[2023-07-14] MEDS: ACETAMINOPHEN 325 MG TABLET PO PRN (21:22)
[2023-07-14 23:54] VITALS: BP 106/59; PULSE 62; RESP 16; TEMP 97.9
[2023-07-15] MEDS: HEPARIN SODIUM,PORCINE 5,000 UNITS/ML VIAL SQ SCH ×3 (00:13→16:39)
[2023-07-15 04:06] VITALS: BP 107/60; PULSE 75; RESP 18; TEMP 99.8
[2023-07-15] MEDS: LEVOTHYROXINE SODIUM 100 MCG TABLET PO SCH (06:04)
[2023-07-15 07:05] LABS: BASOPHILS % (AUTO) 0.3 % (0.0-2.0); EOSINOPHILS % (AUTO) 0.3 % (1.0-6.0); HEMATOCRIT 32.7 % (41-53); HEMOGLOBIN 11.3 g/dL (13.5-17.5); LYMPHOCYTES # (AUTO) 0.8 K/uL (1.0-4.8); LYMPHOCYTES % (AUTO) 7.9 % (22.0-44.0); MEAN CORPUSCULAR HEMOGLOBIN 33.8 pg (26.0-34.0); MEAN CORPUSCULAR HGB CONC 34.5 G/dL (31.0-37.0); MEAN CORPUSCULAR VOLUME 98 fL (80-100); MONOCYTES # (AUTO) 0.9 K/uL (0.1-1.0); MONOCYTES % (AUTO) 8.7 % (2.0-9.0); NEUTROPHILS # (AUTO) 8.4 K/uL (1.8-7.7); NEUTROPHILS % (AUTO) 82.8 % (40.0-70.0); PLATELET COUNT (AUTO) 188 K/uL (150-450); RED BLOOD CELL COUNT(AUTO) 3.33 MIL/uL (4.50-5.90); RED CELL DISTRIBUTION WIDTH 13.6 % (11.5-14.5); WHITE BLOOD COUNT (AUTO) 10.2 K/uL (4.5-11.0)
[2023-07-15 08:01] VITALS: BP 103/60; PULSE 76; RESP 19; TEMP 98.3
[2023-07-15 08:09] LABS: ANION GAP 12 mmol/L (8-16); CALCIUM, TOTAL 8.9 mg/dL (8.8-10.5); CARBON DIOXIDE 25 mmol/L (22-29); CHLORIDE 96 mmol/L (98-107); CREATININE 0.79 mg/dL (0.60-1.30); GLOMERULAR FILTR. RATE CALC > 60 mL/min (>60); GLUCOSE,RANDOM 83 mg/dL (70-110); POTASSIUM 4.4 mmol/L (3.5-5.1); SODIUM SERUM 133 mmol/L (136-145); UREA NITROGEN, BLOOD 22 mg/dL (7-18)
[2023-07-15] MEDS: FLUDROCORTISONE ACETATE 0.1 MG TABLET PO SCH (08:30)
[2023-07-15] MEDS: CARBIDOPA/LEVODOPA 50-200 MG ER TABLET PO SCH ×4 (08:30→21:47)
[2023-07-15] MEDS: DOCUSATE SODIUM 100 MG CAPSULE PO SCH ×2 (08:31→21:47)
[2023-07-15] MEDS: MIDODRINE HCL 5 MG TABLET PO SCH (08:31)
[2023-07-15] MEDS: PANTOPRAZOLE SODIUM 40 MG DR TABLET PO SCH (08:31)
[2023-07-15 11:17] VITALS: BP 136/54; PULSE 66; RESP 19; TEMP 98
[2023-07-15] MEDS ORDERED: SODIUM CHLORIDE 0.9% 500 ML IV ONE (12:04)
[2023-07-15] MEDS: CLINDAMYCIN 600 MG/D5% WATER 50 ML IV SCH ×2 (12:09→21:47)
[2023-07-15 15:30] VITALS: BP 105/67; PULSE 63; RESP 18; TEMP 98.6
[2023-07-15] MEDS: LEVOFLOXACIN 750 MG/D5% WATER 150 ML IV SCH (18:06)
[2023-07-15 20:31] VITALS: BP 111/72; PULSE 60; RESP 20; TEMP 98
[2023-07-15 20:37] VITALS: BP 117/59; PULSE 57; RESP 20; TEMP 98.3
[2023-07-16 00:09] VITALS: BP 105/62; PULSE 56; RESP 18; TEMP 97.7
[2023-07-16] MEDS: HEPARIN SODIUM,PORCINE 5,000 UNITS/ML VIAL SQ SCH ×3 (00:33→16:38)
[2023-07-16] MEDS: CLINDAMYCIN 600 MG/D5% WATER 50 ML IV SCH ×3 (03:49→20:33)
[2023-07-16 04:01] LABS: APPEARANCE,URINE CLEAR (CLEAR); BILIRUBIN,URINE NEGATIVE (NEGATIVE); COLOR,URINE YELLOW (YELLOW); GLUCOSE, URINE (UA) 300-500 mg/dL (NEGATIVE); KETONES,URINE NEGATIVE (NEGATIVE); LEUKOCYTE ESTERASE ,URINE NEGATIVE (NEGATIVE); NITRATE,URINE NEGATIVE (NEGATIVE); OCCULT BLOOD,URINE NEGATIVE (NEGATIVE); PH,URINE 6.5 (5.0-8.0); PROTEIN,URINE TRACE mg/dL (NEGATIVE); SPECIFIC GRAVITIY, URINE 1.027 (1.003-1.030); UROBILINOGEN,URINE <=1.0 mg/dL (<=1.0)
[2023-07-16 04:13] LABS: BACTERIA,URINE None Seen /HPF (None Seen); RBC,URINE None Seen /HPF (0-2); SQUAMOUS EPITHELIAL CELL,UR Few /LPF (None Seen); WBC,URINE None Seen /HPF (0-5)
[2023-07-16 05:53] VITALS: BP 111/69; PULSE 60; RESP 18; TEMP 97.9
[2023-07-16 06:36] LABS: BASOPHILS % (AUTO) 0.5 % (0.0-2.0); EOSINOPHILS % (AUTO) 1.7 % (1.0-6.0); HEMATOCRIT 36.2 % (41-53); HEMOGLOBIN 12.6 g/dL (13.5-17.5); LYMPHOCYTES # (AUTO) 0.9 K/uL (1.0-4.8); LYMPHOCYTES % (AUTO) 14.1 % (22.0-44.0); MEAN CORPUSCULAR HEMOGLOBIN 34.3 pg (26.0-34.0); MEAN CORPUSCULAR VOLUME 98 fL (80-100); MONOCYTES # (AUTO) 1.1 K/uL (0.1-1.0); MONOCYTES % (AUTO) 17.5 % (2.0-9.0); NEUTROPHILS # (AUTO) 4.3 K/uL (1.8-7.7); NEUTROPHILS % (AUTO) 66.2 % (40.0-70.0); PLATELET COUNT (AUTO) 186 K/uL (150-450); RED BLOOD CELL COUNT(AUTO) 3.68 MIL/uL (4.50-5.90); RED CELL DISTRIBUTION WIDTH 13.7 % (11.5-14.5); WHITE BLOOD COUNT (AUTO) 6.4 K/uL (4.5-11.0)
[2023-07-16] MEDS: LEVOTHYROXINE SODIUM 100 MCG TABLET PO SCH (06:45)
[2023-07-16 07:36] VITALS: BP 107/61; PULSE 63; RESP 18; TEMP 98.1
[2023-07-16] MEDS: DOCUSATE SODIUM 100 MG CAPSULE PO SCH ×2 (08:25→20:33)
[2023-07-16] MEDS: FLUDROCORTISONE ACETATE 0.1 MG TABLET PO SCH (08:25)
[2023-07-16] MEDS: MIDODRINE HCL 5 MG TABLET PO SCH (08:26)
[2023-07-16] MEDS: CARBIDOPA/LEVODOPA 50-200 MG ER TABLET PO SCH ×4 (08:26→20:33)
[2023-07-16] MEDS: PANTOPRAZOLE SODIUM 40 MG DR TABLET PO SCH (08:26)
[2023-07-16] MEDS ORDERED: MIDO10TA PO (11:37)
[2023-07-16] MEDS ORDERED: LEVO100 PO (11:37)
[2023-07-16] MEDS ORDERED: CARB1TAB42 PO (11:37)
[2023-07-16] MEDS ORDERED: AMOX1TAB15 PO (11:37)
[2023-07-16] MEDS ORDERED: FLUD.1 PO (11:37)
[2023-07-16 11:56] VITALS: BP 106/69; PULSE 61; RESP 18; TEMP 98
[2023-07-16 15:06] VITALS: BP 108/69; PULSE 64; RESP 20; TEMP 97.6
[2023-07-16] MEDS: LEVOFLOXACIN 750 MG/D5% WATER 150 ML IV SCH (18:11)
[2023-07-16 20:00] VITALS: BP 96/62; PULSE 62; RESP 18; TEMP 97.6
[2023-07-17] VITALS (7 sets, daily range): BP systolic 93–124; BP diastolic 57–70; PULSE 60–67; RESP 18–20; TEMP 97.1–98.4
[2023-07-17] MEDS: HEPARIN SODIUM,PORCINE 5,000 UNITS/ML VIAL SQ SCH ×3 (00:53→15:59)
[2023-07-17] MEDS: CLINDAMYCIN 600 MG/D5% WATER 50 ML IV SCH ×3 (03:43→20:16)
[2023-07-17] MEDS: LEVOTHYROXINE SODIUM 100 MCG TABLET PO SCH (06:27)
[2023-07-17 07:18] LABS: BASOPHILS % (AUTO) 0.6 % (0.0-2.0); EOSINOPHILS % (AUTO) 1.2 % (1.0-6.0); HEMATOCRIT 35.5 % (41-53); HEMOGLOBIN 12.4 g/dL (13.5-17.5); LYMPHOCYTES % (AUTO) 10.4 % (22.0-44.0); MEAN CORPUSCULAR HEMOGLOBIN 34.3 pg (26.0-34.0); MEAN CORPUSCULAR HGB CONC 34.9 G/dL (31.0-37.0); MEAN CORPUSCULAR VOLUME 98 fL (80-100); MONOCYTES # (AUTO) 1.2 K/uL (0.1-1.0); MONOCYTES % (AUTO) 12.5 % (2.0-9.0); NEUTROPHILS % (AUTO) 75.3 % (40.0-70.0); PLATELET COUNT (AUTO) 187 K/uL (150-450); RED BLOOD CELL COUNT(AUTO) 3.62 MIL/uL (4.50-5.90); RED CELL DISTRIBUTION WIDTH 13.7 % (11.5-14.5); WHITE BLOOD COUNT (AUTO) 9.3 K/uL (4.5-11.0)
[2023-07-17] MEDS: PANTOPRAZOLE SODIUM 40 MG DR TABLET PO SCH (08:00)
[2023-07-17] MEDS: DOCUSATE SODIUM 100 MG CAPSULE PO SCH ×2 (08:00→20:16)
[2023-07-17] MEDS: FLUDROCORTISONE ACETATE 0.1 MG TABLET PO SCH (08:00)
[2023-07-17] MEDS: CARBIDOPA/LEVODOPA 50-200 MG ER TABLET PO SCH ×4 (08:00→20:17)
[2023-07-17] MEDS: MIDODRINE HCL 5 MG TABLET PO SCH (08:01)
[2023-07-17] MEDS ORDERED: SODIUM CHLORIDE 0.9% 250 ML IV ONE (20:09)
[2023-07-17] MEDS: LEVOFLOXACIN 750 MG/D5% WATER 150 ML IV SCH (20:16)
[2023-07-17] MEDS: MORPHINE SULFATE 2 MG/ML SYRINGE IVP PRN (23:17)
[2023-07-18] MEDS: HEPARIN SODIUM,PORCINE 5,000 UNITS/ML VIAL SQ SCH ×4 (00:40→23:42)
[2023-07-18 04:00] VITALS: BP 109/71; PULSE 60; RESP 18; TEMP 97.6
[2023-07-18] MEDS: CLINDAMYCIN 600 MG/D5% WATER 50 ML IV SCH ×3 (04:10→19:50)
[2023-07-18] MEDS: DOCUSATE SODIUM 100 MG CAPSULE PO SCH ×2 (08:23→21:09)
[2023-07-18] MEDS: MIDODRINE HCL 5 MG TABLET PO SCH (08:26)
[2023-07-18] MEDS: CARBIDOPA/LEVODOPA 50-200 MG ER TABLET PO SCH ×4 (08:26→21:09)
[2023-07-18] MEDS: FLUDROCORTISONE ACETATE 0.1 MG TABLET PO SCH (08:26)
[2023-07-18] MEDS: LEVOTHYROXINE SODIUM 100 MCG TABLET PO SCH (08:27)
[2023-07-18] MEDS: PANTOPRAZOLE SODIUM 40 MG DR TABLET PO SCH (08:27)
[2023-07-18 08:40] VITALS: BP 93/75; PULSE 64; RESP 18; TEMP 98.9
[2023-07-18 16:19] VITALS: BP 108/65; PULSE 62; RESP 18; TEMP 98
[2023-07-18] MEDS: LEVOFLOXACIN 750 MG/D5% WATER 150 ML IV SCH (19:27)
[2023-07-18 19:54] VITALS: BP 90/61; PULSE 63; RESP 18; TEMP 97.4
[2023-07-18] MEDS ORDERED: SODIUM CHLORIDE 0.9% 0 ML IV ONE (23:37)
[2023-07-19 02:50] VITALS: BP 105/56; PULSE 62; RESP 18; TEMP 97.7
[2023-07-19] MEDS: CLINDAMYCIN 600 MG/D5% WATER 50 ML IV SCH ×3 (03:00→20:31)
[2023-07-19 07:38] LABS: BASOPHILS % (AUTO) 0.4 % (0.0-2.0); EOSINOPHILS % (AUTO) 2.3 % (1.0-6.0); HEMATOCRIT 35.9 % (41-53); HEMOGLOBIN 12.2 g/dL (13.5-17.5); LYMPHOCYTES # (AUTO) 0.8 K/uL (1.0-4.8); MEAN CORPUSCULAR HEMOGLOBIN 33.4 pg (26.0-34.0); MEAN CORPUSCULAR HGB CONC 34.1 G/dL (31.0-37.0); MEAN CORPUSCULAR VOLUME 98 fL (80-100); MONOCYTES # (AUTO) 0.7 K/uL (0.1-1.0); MONOCYTES % (AUTO) 12.6 % (2.0-9.0); NEUTROPHILS # (AUTO) 3.8 K/uL (1.8-7.7); NEUTROPHILS % (AUTO) 69.7 % (40.0-70.0); PLATELET COUNT (AUTO) 173 K/uL (150-450); RED BLOOD CELL COUNT(AUTO) 3.65 MIL/uL (4.50-5.90); RED CELL DISTRIBUTION WIDTH 13.8 % (11.5-14.5); WHITE BLOOD COUNT (AUTO) 5.4 K/uL (4.5-11.0)
[2023-07-19] MEDS: HEPARIN SODIUM,PORCINE 5,000 UNITS/ML VIAL SQ SCH ×3 (08:47→23:01)
[2023-07-19] MEDS: CARBIDOPA/LEVODOPA 50-200 MG ER TABLET PO SCH ×4 (08:50→20:31)
[2023-07-19] MEDS: PANTOPRAZOLE SODIUM 40 MG DR TABLET PO SCH (08:50)
[2023-07-19] MEDS: FLUDROCORTISONE ACETATE 0.1 MG TABLET PO SCH (08:50)
[2023-07-19] MEDS: LEVOTHYROXINE SODIUM 100 MCG TABLET PO SCH (08:50)
[2023-07-19] MEDS: DOCUSATE SODIUM 100 MG CAPSULE PO SCH ×2 (08:50→20:31)
[2023-07-19] MEDS: MIDODRINE HCL 5 MG TABLET PO SCH (08:50)
[2023-07-19 09:06] VITALS: BP 103/61; PULSE 53; RESP 18; TEMP 98.1
[2023-07-19] MEDS ORDERED: SODIUM CHLORIDE 0.9% 250 ML IV ONE (11:29)
[2023-07-19] MEDS: MORPHINE SULFATE 2 MG/ML SYRINGE IVP PRN (13:58)
[2023-07-19 15:48] VITALS: BP 108/65; PULSE 60; RESP 16; TEMP 98
[2023-07-19] MEDS: LEVOFLOXACIN 750 MG/D5% WATER 150 ML IV SCH (18:26)
[2023-07-19 20:00] VITALS: BP 117/65; PULSE 70; RESP 18; TEMP 98.1
[2023-07-19] MEDS: ACETAMINOPHEN 325 MG TABLET PO PRN (20:42)
[2023-07-20] MEDS: MORPHINE SULFATE 2 MG/ML SYRINGE IVP PRN ×3 (02:10→23:58)
[2023-07-20] MEDS: CLINDAMYCIN 600 MG/D5% WATER 50 ML IV SCH ×3 (03:27→20:15)
[2023-07-20 03:55] VITALS: BP 103/63; PULSE 60; RESP 18; TEMP 97.9
[2023-07-20 07:59] VITALS: BP 102/63; PULSE 18; RESP 18; TEMP 97.8
[2023-07-20] MEDS: LEVOTHYROXINE SODIUM 100 MCG TABLET PO SCH (08:26)
[2023-07-20] MEDS: HEPARIN SODIUM,PORCINE 5,000 UNITS/ML VIAL SQ SCH ×3 (08:26→23:57)
[2023-07-20] MEDS: MIDODRINE HCL 5 MG TABLET PO SCH (08:27)
[2023-07-20] MEDS: FLUDROCORTISONE ACETATE 0.1 MG TABLET PO SCH (08:27)
[2023-07-20] MEDS: DOCUSATE SODIUM 100 MG CAPSULE PO SCH ×2 (08:27→20:13)
[2023-07-20] MEDS: PANTOPRAZOLE SODIUM 40 MG DR TABLET PO SCH (08:27)
[2023-07-20] MEDS: CARBIDOPA/LEVODOPA 50-200 MG ER TABLET PO SCH ×4 (08:27→20:14)
[2023-07-20 15:54] VITALS: BP 121/74; PULSE 71; RESP 18; TEMP 97.4
[2023-07-20] MEDS ORDERED: SODIUM CHLORIDE 0.9% 500 ML IV ONE (16:30)
[2023-07-20] MEDS: LEVOFLOXACIN 750 MG/D5% WATER 150 ML IV SCH (18:16)
[2023-07-20 19:27] VITALS: BP 108/61; PULSE 70; RESP 19; TEMP 97.7
[2023-07-21] MEDS: CLINDAMYCIN 600 MG/D5% WATER 50 ML IV SCH ×3 (03:59→20:42)
[2023-07-21 04:05] VITALS: BP 98/63; PULSE 66; RESP 18; TEMP 98
[2023-07-21] MEDS: HEPARIN SODIUM,PORCINE 5,000 UNITS/ML VIAL SQ SCH ×3 (08:35→23:42)
[2023-07-21] MEDS: LEVOTHYROXINE SODIUM 100 MCG TABLET PO SCH (08:36)
[2023-07-21] MEDS: CARBIDOPA/LEVODOPA 50-200 MG ER TABLET PO SCH ×4 (08:36→20:42)
[2023-07-21] MEDS: PANTOPRAZOLE SODIUM 40 MG DR TABLET PO SCH (08:36)
[2023-07-21] MEDS: DOCUSATE SODIUM 100 MG CAPSULE PO SCH ×2 (08:36→19:52)
[2023-07-21] MEDS: FLUDROCORTISONE ACETATE 0.1 MG TABLET PO SCH (08:37)
[2023-07-21] MEDS: MIDODRINE HCL 5 MG TABLET PO SCH (08:37)
[2023-07-21 15:54] VITALS: BP 100/66; PULSE 72; RESP 19; TEMP 98.4
[2023-07-21] MEDS: LEVOFLOXACIN 750 MG/D5% WATER 150 ML IV SCH (17:09)
[2023-07-21 19:38] VITALS: BP 102/64; PULSE 68; RESP 18; TEMP 97.5
[2023-07-21] MEDS: HYDROCODONE/ACETAMINOPHEN 5-325 MG TABLET PO PRN (20:42)
[2023-07-21] MEDS: ZOLPIDEM TARTRATE 5 MG TABLET PO PRN (20:42)
[2023-07-22] MEDS: CLINDAMYCIN 600 MG/D5% WATER 50 ML IV SCH ×3 (04:28→20:00)
[2023-07-22 04:37] VITALS: BP 102/63; PULSE 65; RESP 18; TEMP 98.2
[2023-07-22 07:51] VITALS: BP 117/56; PULSE 66; RESP 20; TEMP 98.4
[2023-07-22] MEDS: CARBIDOPA/LEVODOPA 50-200 MG ER TABLET PO SCH ×4 (10:05→20:08)
[2023-07-22] MEDS: HEPARIN SODIUM,PORCINE 5,000 UNITS/ML VIAL SQ SCH ×2 (10:05→15:45)
[2023-07-22] MEDS: DOCUSATE SODIUM 100 MG CAPSULE PO SCH ×2 (10:05→20:08)
[2023-07-22] MEDS: MIDODRINE HCL 5 MG TABLET PO SCH (10:06)
[2023-07-22] MEDS: LEVOTHYROXINE SODIUM 100 MCG TABLET PO SCH (10:06)
[2023-07-22] MEDS: FLUDROCORTISONE ACETATE 0.1 MG TABLET PO SCH (10:06)
[2023-07-22] MEDS: PANTOPRAZOLE SODIUM 40 MG DR TABLET PO SCH (10:06)
[2023-07-22] MEDS ORDERED: SODIUM CHLORIDE 0.9% 500 ML IV ONE (12:10)
[2023-07-22 15:10] VITALS: BP 110/58; PULSE 72; RESP 18; TEMP 98.2
[2023-07-22] MEDS: ACETAMINOPHEN 325 MG TABLET PO PRN (16:54)
[2023-07-22] MEDS: LEVOFLOXACIN 750 MG/D5% WATER 150 ML IV SCH (18:02)
[2023-07-22 20:00] VITALS: BP 104/67; PULSE 70; RESP 18; TEMP 97.5
[2023-07-22] MEDS: MORPHINE SULFATE 2 MG/ML SYRINGE IVP PRN (20:08)
[2023-07-22] MEDS: ZOLPIDEM TARTRATE 5 MG TABLET PO PRN (20:19)
[2023-07-23] MEDS: HEPARIN SODIUM,PORCINE 5,000 UNITS/ML VIAL SQ SCH ×4 (00:02→23:52)
[2023-07-23] MEDS: MORPHINE SULFATE 2 MG/ML SYRINGE IVP PRN ×2 (00:14→08:25)
[2023-07-23] MEDS: CLINDAMYCIN 600 MG/D5% WATER 50 ML IV SCH ×3 (03:39→20:07)
[2023-07-23 04:00] VITALS: BP 109/59; PULSE 62; RESP 18; TEMP 97.6
[2023-07-23 08:10] VITALS: BP 101/53; PULSE 61; RESP 18; TEMP 98.2
[2023-07-23] MEDS: DOCUSATE SODIUM 100 MG CAPSULE PO SCH ×2 (08:12→20:08)
[2023-07-23] MEDS: FLUDROCORTISONE ACETATE 0.1 MG TABLET PO SCH (08:12)
[2023-07-23] MEDS: LEVOTHYROXINE SODIUM 100 MCG TABLET PO SCH (08:12)
[2023-07-23] MEDS: CARBIDOPA/LEVODOPA 50-200 MG ER TABLET PO SCH ×4 (08:12→20:08)
[2023-07-23] MEDS: MIDODRINE HCL 5 MG TABLET PO SCH (08:12)
[2023-07-23] MEDS: PANTOPRAZOLE SODIUM 40 MG DR TABLET PO SCH (08:12)
[2023-07-23 15:50] VITALS: BP 117/64; PULSE 65; RESP 18; TEMP 97.9
[2023-07-23] MEDS: LEVOFLOXACIN 750 MG/D5% WATER 150 ML IV SCH (18:22)
[2023-07-23 19:46] VITALS: BP 100/62; PULSE 64; RESP 18; TEMP 97.5
[2023-07-23] MEDS: ZOLPIDEM TARTRATE 5 MG TABLET PO PRN (20:12)
[2023-07-24] MEDS: CLINDAMYCIN 600 MG/D5% WATER 50 ML IV SCH (03:38)
[2023-07-24 04:17] VITALS: BP 144/68; PULSE 76; RESP 18; TEMP 97.7
[2023-07-24 07:52] VITALS: BP 100/63; PULSE 78; RESP 18; TEMP 97.4
[2023-07-24] MEDS: CARBIDOPA/LEVODOPA 50-200 MG ER TABLET PO SCH ×4 (09:00→21:11)
[2023-07-24] MEDS: PANTOPRAZOLE SODIUM 40 MG DR TABLET PO SCH (09:00)
[2023-07-24] MEDS: DOCUSATE SODIUM 100 MG CAPSULE PO SCH ×2 (09:00→21:11)
[2023-07-24] MEDS: FLUDROCORTISONE ACETATE 0.1 MG TABLET PO SCH (10:14)
[2023-07-24] MEDS: MIDODRINE HCL 5 MG TABLET PO SCH (10:17)
[2023-07-24] MEDS: LEVOTHYROXINE SODIUM 100 MCG TABLET PO SCH (10:17)
[2023-07-24] MEDS: HEPARIN SODIUM,PORCINE 5,000 UNITS/ML VIAL SQ SCH ×3 (10:18→23:28)
[2023-07-24 10:33] LABS: BASOPHILS % (AUTO) 0.5 % (0.0-2.0); EOSINOPHILS % (AUTO) 1.3 % (1.0-6.0); HEMATOCRIT 36.4 % (41-53); HEMOGLOBIN 12.4 g/dL (13.5-17.5); LYMPHOCYTES # (AUTO) 0.7 K/uL (1.0-4.8); LYMPHOCYTES % (AUTO) 11.3 % (22.0-44.0); MEAN CORPUSCULAR HEMOGLOBIN 33.3 pg (26.0-34.0); MEAN CORPUSCULAR VOLUME 98 fL (80-100); MONOCYTES # (AUTO) 0.8 K/uL (0.1-1.0); MONOCYTES % (AUTO) 14.2 % (2.0-9.0); NEUTROPHILS # (AUTO) 4.4 K/uL (1.8-7.7); NEUTROPHILS % (AUTO) 72.7 % (40.0-70.0); PLATELET COUNT (AUTO) 158 K/uL (150-450); RED BLOOD CELL COUNT(AUTO) 3.71 MIL/uL (4.50-5.90); RED CELL DISTRIBUTION WIDTH 14.3 % (11.5-14.5)
[2023-07-24 10:37] LABS: ANION GAP 5 mmol/L (8-16); CALCIUM, TOTAL 8.8 mg/dL (8.8-10.5); CARBON DIOXIDE 30 mmol/L (22-29); CHLORIDE 96 mmol/L (98-107); CREATININE 0.69 mg/dL (0.60-1.30); GLOMERULAR FILTR. RATE CALC > 60 mL/min (>60); GLUCOSE,RANDOM 103 mg/dL (70-110); SODIUM SERUM 131 mmol/L (136-145); UREA NITROGEN, BLOOD 16 mg/dL (7-18)
[2023-07-24 15:39] VITALS: BP 118/74; PULSE 71; RESP 18; TEMP 98.5
[2023-07-24 19:10] VITALS: BP 107/68; PULSE 72; RESP 18; TEMP 97.9
[2023-07-25 03:35] VITALS: BP 104/65; PULSE 62; RESP 18; TEMP 97.5
[2023-07-25 07:30] VITALS: BP 108/47; PULSE 65; RESP 18; TEMP 97.7
[2023-07-25] MEDS: CARBIDOPA/LEVODOPA 50-200 MG ER TABLET PO SCH ×4 (07:44→20:52)
[2023-07-25] MEDS: PANTOPRAZOLE SODIUM 40 MG DR TABLET PO SCH (07:44)
[2023-07-25] MEDS: DOCUSATE SODIUM 100 MG CAPSULE PO SCH ×2 (07:44→20:52)
[2023-07-25] MEDS: FLUDROCORTISONE ACETATE 0.1 MG TABLET PO SCH (07:50)
[2023-07-25] MEDS: MIDODRINE HCL 5 MG TABLET PO SCH (07:50)
[2023-07-25] MEDS: HEPARIN SODIUM,PORCINE 5,000 UNITS/ML VIAL SQ SCH ×3 (07:50→23:34)
[2023-07-25] MEDS: LEVOTHYROXINE SODIUM 100 MCG TABLET PO SCH (07:50)
[2023-07-25] MEDS: MORPHINE SULFATE 2 MG/ML SYRINGE IVP PRN (09:01)
[2023-07-25 21:11] VITALS: BP 106/67; PULSE 57; RESP 18; TEMP 97.6
[2023-07-26 06:39] VITALS: BP 105/64; PULSE 60; RESP 18; TEMP 98
[2023-07-26 08:15] VITALS: BP 111/72; PULSE 62; RESP 18; TEMP 96.9
[2023-07-26] MEDS: PANTOPRAZOLE SODIUM 40 MG DR TABLET PO SCH (09:00)
[2023-07-26] MEDS: HEPARIN SODIUM,PORCINE 5,000 UNITS/ML VIAL SQ SCH ×2 (09:52→17:10)
[2023-07-26] MEDS: MIDODRINE HCL 5 MG TABLET PO SCH (09:53)
[2023-07-26] MEDS: FLUDROCORTISONE ACETATE 0.1 MG TABLET PO SCH (09:54)
[2023-07-26] MEDS: LEVOTHYROXINE SODIUM 100 MCG TABLET PO SCH (09:54)
[2023-07-26] MEDS: CARBIDOPA/LEVODOPA 50-200 MG ER TABLET PO SCH ×4 (09:54→20:21)
[2023-07-26] MEDS: DOCUSATE SODIUM 100 MG CAPSULE PO SCH ×2 (13:35→20:21)
[2023-07-26 16:27] VITALS: BP 121/78; PULSE 58; RESP 18; TEMP 98
[2023-07-26 19:48] VITALS: BP 102/73; PULSE 77; RESP 18; TEMP 97.1
[2023-07-26] MEDS: HYDROCODONE/ACETAMINOPHEN 5-325 MG TABLET PO PRN (21:02)
[2023-07-27] MEDS: HEPARIN SODIUM,PORCINE 5,000 UNITS/ML VIAL SQ SCH ×3 (00:37→16:53)
[2023-07-27 02:03] VITALS: BP 108/68; PULSE 66; RESP 18; TEMP 98.1
[2023-07-27] MEDS: HYDROCODONE/ACETAMINOPHEN 5-325 MG TABLET PO PRN ×2 (02:21→13:50)
[2023-07-27] MEDS: MIDODRINE HCL 5 MG TABLET PO SCH (08:33)
[2023-07-27] MEDS: PANTOPRAZOLE SODIUM 40 MG DR TABLET PO SCH (08:33)
[2023-07-27] MEDS: LEVOTHYROXINE SODIUM 100 MCG TABLET PO SCH (08:33)
[2023-07-27] MEDS: FLUDROCORTISONE ACETATE 0.1 MG TABLET PO SCH (08:33)
[2023-07-27] MEDS: DOCUSATE SODIUM 100 MG CAPSULE PO SCH ×2 (08:33→21:36)
[2023-07-27] MEDS: CARBIDOPA/LEVODOPA 50-200 MG ER TABLET PO SCH ×4 (08:33→21:36)
[2023-07-27 11:25] VITALS: BP 122/68; PULSE 72; RESP 18; TEMP 97.4
[2023-07-27 17:06] VITALS: BP 106/71; PULSE 69; RESP 19; TEMP 97.5
[2023-07-27 17:08] VITALS: BP 106/71; PULSE 69; RESP 19; TEMP 97.5
[2023-07-27 20:13] VITALS: BP 106/66; PULSE 69; RESP 18; TEMP 97.7
[2023-07-28] MEDS: HEPARIN SODIUM,PORCINE 5,000 UNITS/ML VIAL SQ SCH ×2 (00:34→08:00)
[2023-07-28 04:00] VITALS: BP 104/69; PULSE 70; RESP 18; TEMP 97.5
[2023-07-28] MEDS: MORPHINE SULFATE 2 MG/ML SYRINGE IVP PRN (05:16)
[2023-07-28] MEDS: CARBIDOPA/LEVODOPA 50-200 MG ER TABLET PO SCH ×2 (08:01→13:00)
[2023-07-28] MEDS: DOCUSATE SODIUM 100 MG CAPSULE PO SCH (08:01)
[2023-07-28] MEDS: FLUDROCORTISONE ACETATE 0.1 MG TABLET PO SCH (08:01)
[2023-07-28] MEDS: PANTOPRAZOLE SODIUM 40 MG DR TABLET PO SCH (08:01)
[2023-07-28] MEDS: LEVOTHYROXINE SODIUM 100 MCG TABLET PO SCH (08:01)
[2023-07-28] MEDS: MIDODRINE HCL 5 MG TABLET PO SCH (08:01)
[2023-07-28 08:54] VITALS: BP 115/78; PULSE 77; RESP 18; TEMP 97
== END 2023-07-28 14:16 | disposition hospice, home (50) | DRG 177 ==
LOC: EMS 14:35 → 5S 22:23 → 6S 07-17 22:12
PROVIDERS: ADMIT Internal Medicine; ATTEND Internal Medicine
DX: J69.0 Pneumonitis due to inhalation of food and vomit (principal); E43 Unspecified severe protein-calorie malnutrition; J96.91 Respiratory failure, unspecified with hypoxia; G93.41 Metabolic encephalopathy; E87.1 Hypo-osmolality and hyponatremia; Z68.1 Body mass index [BMI] 19.9 or less, adult; M81.0 Age-related osteoporosis without current pathological fracture; F02.80 Dementia in other diseases classified elsewhere, unspecified severity, without behavioral disturbance, psychotic disturbance, mood disturbance, and anxiety; G20.A1 Parkinson's disease without dyskinesia, without mention of fluctuations; E66.8 Other obesity; I48.91 Unspecified atrial fibrillation; E03.9 Hypothyroidism, unspecified; Z20.822 Contact with and (suspected) exposure to COVID-19; I10 Essential (primary) hypertension; R13.10 Dysphagia, unspecified; R79.89 Other specified abnormal findings of blood chemistry; S30.91XA Unspecified superficial injury of lower back and pelvis, initial encounter; X58.XXXA Exposure to other specified factors, initial encounter; Y93.89 Activity, other specified; Y92.89 Other specified places as the place of occurrence of the external cause; Y99.8 Other external cause status; Z93.1 Gastrostomy status; Z95.2 Presence of prosthetic heart valve; Z95.0 Presence of cardiac pacemaker; Z79.899 Other long term (current) drug therapy
CPT/HCPCS: 71045; 80048; 80053; 81001; 82550; 83880; 84484; 85025; 87040; 87077; 87081; 87205; 87420; 87804; 93005; 94640; 99285; J0456; J0696; J1644; J1956; J2270; J2405; J3490; J7030; J7040; J7050; 36415-L1; 36415-TC; J7613